=== PATIENT | male | born 1935 | race Caucasian/White ===

== ENCOUNTER → 2018-01-11 10:35 | Outpatient (CLI) | payer OTHER, SELFPAY ==
[2018-01-11 14:14] LABS: Hemoglobin A1C 8.1 % (4.5-6.2)
== END ==
PROVIDERS: PCP Family Medicine; Visit Provider Family Medicine
DX: E11.9 Type 2 diabetes mellitus without complications (principal)
CPT/HCPCS: 36415; 83036

== ENCOUNTER 2018-05-11 11:23 | Outpatient (CLI) | payer OTHER, SELFPAY ==
[2018-05-11 12:59] LABS: Hemoglobin A1C 8.7 % (4.5-6.2)
[2018-05-11 13:01] LABS: CREATININE 1.69 mg/dL (0.70-1.30); Estimated GFR 39.24 (mL/min/1.73m2); Potassium 4.9 mmol/L (3.5-5.1)
== END 2018-05-11 11:43 ==
PROVIDERS: PCP Family Medicine; Visit Provider Family Medicine
DX: E11.9 Type 2 diabetes mellitus without complications (principal)
CPT/HCPCS: 36415; 82565; 83036; 84132

== ENCOUNTER 2018-10-04 09:00 | Emergency (ER) | payer OTHER, SELFPAY ==
[2018-10-04] VITALS (52 sets, daily range): BP systolic 86–145; BP diastolic 45–56; PULSE 62–110; RESP 13–25; TEMP 37.2; O2SAT 91–98
--- NOTE | 2018-10-04 09:31 | DI.RAD_ITS ---
SYMPTOM/DIAGNOSIS: COUGH, FATIGUE PA AND LATERAL CHEST: Comparison is made with 11/12/16. Heart size and pulmonary vasculature are within normal limits. The lungs are free of infiltrates, effusions or pneumothoraces. Degenerative changes are seen in the spine. The patient has sternal wires in place. IMPRESSION: No acute pulmonary process.
--- NOTE | 2018-10-04 09:33 | W.ED.GENAD ---
Discharge Plan Disposition Patient Disposition: HOME Condition: Good Discharge Details Chief Complaint: GenMedical Clinical Impression: Bronchitis, Fatigue Primary Care Provider: Jamar Diaz ED Provider: Trini Rodriguez Home Meds and New Rx's Prescriptions: Continued pravastatin [Pravachol] 40 mg tablet 40 mg PO DAILY Qty: 90 RF: 4 sennosides-docusate sodium [Stool Softener-Stimulant Laxat] 1 EACH tablet 50 mg PO daily prn RF: 0 potassium chloride 10 MEQ capsule, extended release 10 meq PO DAILY Qty: 1 RF: 0 acetaminophen 500 MG tablet 500 mg PO 1-2 Tabs Q6Hrs PRN Qty: 1 RF: 0 aspirin 81 MG tablet,chewable 81 mg PO DAILY RF: 0 pen needle, diabetic [BD Ultra-Fine Yecenia Pen Needle] 1 EACH needle 1 ea Miscellaneous DAILY Qty: 100 RF: 3 multivitamin [Daily Multi-Vitamin] 1 EACH tablet 1 ea PO DAILY RF: 0 pindolol 5 MG tablet 5 mg PO BID RF: 0 losartan 25 MG tablet 0.5 tab PO DAILY Qty: 45 RF: 3 glipizide 5 MG tablet 5 - 10 mg PO BID Qty: 270 RF: 3 gabapentin 100 MG capsule 100 mg PO HS Qty: 90 RF: 3 isosorbide mononitrate 10 mg tablet 10 mg PO BID Qty: 180 RF: 3 memantine 5 mg tablet 5 mg PO BID Qty: 180 RF: 3 OneTouch Ultra Test strip 1 ea Miscellaneous TID Qty: 100 RF: 3 donepezil 10 mg tablet 10 mg PO DAILY Qty: 90 RF: 3 furosemide 40 mg tablet 40 mg PO DAILY Qty: 135 RF: 4 Discharge Instructions Instructions: Acute Bronchitis (ED), Fatigue (ED) Additional Instructions: Use the inhaler as needed and directed for shortness of breath. Follow-up with your scheduled appointment with your primary care doctor made for you tomorrow October 05 at 11:20 AM at [facility]. Return immediately to the emergency department with any worsening or new concerning symptoms. Discharge Data Discharge Date/Time-TO BE ENTERED AT DEPARTURE: 10/04/18 15:08 Discharge Physician: Trini Rodriguez Medical Decision Making 83-year-old male with history of angina, diabetes, hypertension, hyperlipidemia, HI, non-Hodgkin's lymphoma, PE presents with cough, shortness of breath and dizziness since yesterday. Patient denied any these complaints and states he did not recall them but the stated that she had noted that he had a cough and had complained to her of shortness of breath last night and an episode of dizziness last night as well as today. Patient denies any complaints at present and states he feels fine. states she is concerned that patient has possible pneumonia. Vitals within normal limits on arrival. He has scattered wheezing and rhonchi throughout, worse on the left chest. EKG notes a rate of 72 and sinus with less than 1 mm to [address] depression in V4 V5 V6 which is been seen in previous EKG did thousand 17. No other acute ST findings. Differential diagnosis includes pneumonia, UTI, HI, electrolyte abnormality, dehydration. Will place an IV, small bolus IV fluids, refer for screening labs, chest x-ray. 1400 --labs and imaging reviewed. White blood cell count 11. Initial troponin 0.10. Patient has had similar results of troponin in 2017 at 0.11 and 0.10. BNP 3770. Urinalysis negative for infection. Chest x-ray negative. A repeat troponin is 0.11. A repeat EKG is unremarkable. Patient denies any complaints of chest pain, shortness of breath, dizziness and he is requesting to go home. He was offered admission for observation but declined. Pt, and I engaged in shared decision making that he can monitor his symptoms at home and will arrange for a f/u appt with his pcp and to return here if worse. Discussed with patient and at length at bedside that with patient's scattered rhonchi and wheezing, he may have bronchitis which is likely viral. Discussed considering steroids but would rather hold on this at this time due to his diabetes and fluctuation in his blood sugar. Also discussed that with no fever, normal vital signs, negative chest x-ray, they would rather hold on antibiotics at this time, as well as his elevated BNP in the setting of a normal chest x-ray and no clinical signs of CHF, will hold on increasing Lasix at this time. An appointment was made for patient with his primary care doctor tomorrow 11:20 AM for reassessment and consideration of possible increasing his Lasix, or adding steroids or antibiotic's at this time if symptoms do not improve or worsen. Patient was instructed to return here immediately with any worsening or new concerning symptoms. Medical Records Medical records reviewed: Yes I reviewed the patient's medical records. Imaging Data Radiologic Study: Radiologist's impression: PA AND LATERAL CHEST: Comparison is made with 11/12/16. Heart size and pulmonary vasculature are within normal limits. The lungs are free of infiltrates, effusions or pneumothoraces. Degenerative changes are seen in the spine. The patient has sternal wires in place. IMPRESSION: No acute pulmonary process. Lab Data Lab results reviewed: Yes I reviewed the patient's lab results. ECG Data Attestation: I personally reviewed and interpreted this ECG (s) as follows: Interpretation: Rate of 72, sinus, less than 1 mm to [address] depression seen in V4 V5 and V6 which is been seen in previous EKG 2017. No acute ST elevation. QTc 376. QRS 102. HPI General Mode of arrival: ambulatory. Date/Time Provider Initiated Documentation: 10/04/18 09:13. Limitations to Documentation: no limitations. Information obtained by: patient. HPI Narrative: Patient is an 83-year-old male with a history of angina, diabetes, hypertension, hyperlipidemia, HI, non-Hodgkin's lymphoma, PE who presents the ED with complaint of cough for the past few days, decreased appetite, fatigue and intermittent episodes of dizziness and shortness of breath. Patient does not recall any of these complaints and states he feels fine and denies any complaints at this time. states she noticed that patient had more of a cough yesterday but states is improved today. She states last night he complained of feeling dizzy as well as this morning. She states last night he complained of feeling short of breath but not since then. He denies any fever, chest pain, sick contacts, recent travel, or recent hospital admission. Related Data Home Medications Medication Instructions Recorded Confirmed sennosides-docusate sodium [Stool 50 mg PO daily prn 10/19/12 10/04/18 Softener-Stimulant Laxat] acetaminophen 500 mg PO 1-2 Tabs Q6Hrs PRN #1 08/15/15 10/04/18 potassium chloride 10 meq PO DAILY #1 08/15/15 10/04/18 aspirin 81 mg PO DAILY tab-cap 09/16/16 10/04/18 pen needle, diabetic [BD #100 ndl 06/23/17 12/12/18 Ultra-Fine Yecenia Pen Needle] multivitamin [Daily Multi-Vitamin] 1 ea PO DAILY 10/13/17 05/11/18 pindolol 5 mg PO BID tab-cap 10/13/17 10/04/18 glipizide 5 - 10 mg PO BID #270 tab-cap 12/29/17 10/04/18 losartan 0.5 tab PO DAILY #45 tab-cap 12/29/17 10/04/18 gabapentin 100 mg PO HS #90 tab-cap 12/30/17 10/04/18 pravastatin 40 mg tablet 40 mg PO DAILY #90 tab-cap 05/11/18 10/04/18 isosorbide mononitrate 10 mg tablet 10 mg PO BID #180 tab-cap 08/10/18 10/04/18 memantine 5 mg tablet 5 mg PO BID #180 tab 08/10/18 10/04/18 blood sugar diagnostic strips #100 strip 08/11/18 donepezil 10 mg tablet 10 mg PO DAILY #90 tab-cap 09/14/18 10/04/18 furosemide 40 mg tablet 40 mg PO DAILY #135 tab-cap 09/28/18 10/04/18 Previous Rx's Medication Instructions Recorded glipizide 5 - 10 mg PO BID #270 tab-cap 12/29/17 losartan 0.5 tab PO DAILY #45 tab-cap 12/29/17 gabapentin 100 mg PO HS #90 tab-cap 12/30/17 pravastatin 40 mg tablet 40 mg PO DAILY #90 tab-cap 05/11/18 isosorbide mononitrate 10 mg tablet 10 mg PO BID #180 tab-cap 08/10/18 memantine 5 mg tablet 5 mg PO BID #180 tab 08/10/18 blood sugar diagnostic strips #100 strip 08/11/18 donepezil 10 mg tablet 10 mg PO DAILY #90 tab-cap 09/14/18 furosemide 40 mg tablet 40 mg PO DAILY #135 tab-cap 09/28/18 Allergies Allergy/AdvReac Type Severity Reaction Status Date / Time Iodinated Contrast- Oral and Allergy Severe Swelling/Ed Unverified 10/04/18 09:15 IV Dye jia memantine Allergy diarrhea Unverified 10/04/18 09:15 Opioids - Morphine Analogues AdvReac Intermediate Nausea Unverified 10/04/18 09:15 General Stated Complaint: GenMedical JENY: 3 Review of Systems Review of Systems All systems reviewed & are unremarkable except as noted in HPI and below Constitutional Reports as per HPI, Denies chills and Denies fever(s) Eyes Denies blurry vision ENT Denies dizziness, Denies sore throat and Denies throat swelling Cardiovascular Denies chest pain and Denies dyspnea Respiratory Denies cough and Denies dyspnea Gastrointestinal Denies abdominal pain, Denies diarrhea and Denies vomiting Genitourinary Denies hematuria and Denies dysuria Musculoskeletal Denies back pain and Denies numbness Integumentary/Breasts Denies lesions and Denies rash Neurologic Denies dizziness, Denies focal weakness and Denies numbness Allergic/Immunologic Denies throat swelling PFS Surgical History CARDIAC CATH (~2007) Stent placement `ZIOPATCH` Family History Mother Diabetes Myocardial infarction Father Myocardial infarction Social History Smoking/Tobacco Use Status: Former Tobacco Use Alcohol Intake: former Drug use: Never Do you feel safe at home: Yes Do you feel safe in your relationship?: Yes Exam Const General: cooperative, healthy appearing and no acute distress HENMT Head: normal to inspection Face and sinus: normal facial exam Eyes General: appearance normal, both eyes and all related structures EOM: EOM intact bilaterally Neck Neck: normal visual inspection and No submandibular swelling Lymphatic: no lymphadenopathy noted Chest Chest: normal inspection of the chest and no tenderness Resp Effort & Inspection: normal respiratory effort and able to speak in complete sentences Auscultation: rhonchi (Worse on the left side) upper bilaterally and lower bilaterally and wheezes scattered wheezes Cardio Rate: regular rate Rhythm: regular rhythm GI Inspection: normal to inspection Palpation: soft, not firm, not rigid and nontender Auscultation: normal bowel sounds Skin General skin exam: no rashes or lesions noted Neuro General: alert, awake and oriented x3 Cognition: normal cognition Speech: speech normal Motor: muscle tone normal throughout Sensory Exam: no sensory deficits noted Extrem General: normal to inspection, full ROM and no edema Psych Appearance: grossly normal Mental Status: mental status grossly normal Speech and Movement: speech and movement normal Affect: normal affect Course Vital Signs Temperature 99.0 F 10/04/18 09:06 Pulse 76 10/04/18 09:06 Respiratory Rate 18 10/04/18 09:06 Blood Pressure 101/53 L 10/04/18 09:06 Pulse Oximetry 97 10/04/18 09:06 Temperature 99.0 F 10/04/18 09:06 Temperature Source Skin 10/04/18 09:06 Pulse 76 10/04/18 09:06 Respiratory Rate 18 10/04/18 09:06 Respiratory Effort Non-Labored 10/04/18 09:13 Blood Pressure 101/53 L 10/04/18 09:06 Blood Pressure Position Sitting 10/04/18 09:06 Pulse Oximetry 97 10/04/18 09:06 Oxygen Delivery Method Room Air 10/04/18 09:06 Oxygen Flow Rate 0 10/04/18 09:06
[2018-10-04 10:00] LABS: Abs Immature Grans 0.02 k/cumm (0.0-0.09); Absolute Basophil Count 0.03 k/cumm (0.0-0.2); Absolute Eosinophil Count 0.01 k/cumm (0.0-0.7); Absolute Lymphocyte Count 0.67 k/cumm (1.2-3.4); Absolute Monocyte Count 1.14 k/cumm (0.11-0.7); Basophils % 0.3; Eosinophils % 0.1; HCT 40.1 % (40.0-50.0); HGB 13.2 g/dL (13.5-17.5); Immature Grans % 0.2; Mean Corp. HGB Concentration 32.9 g/dL (32.0-36.0); Mean Corpuscular Volume 100.3 fL (80-95); Mean Platelet Volume 10.9 fL (8.0-11.0); Monocytes % 10.3; Neutrophils % 83.1; Platelet Count 237 x1000/uL (130-400); RBC Distribution Width 13.2 % (11.8-14.1); White Blood Cell Count 11.11 k/cumm (4.4-10.8)
[2018-10-04 10:01] LABS: Absolute Neutrophil Count 9.23 k/cumm (1.2-6.7)
[2018-10-04] MEDS: Normal Saline 250 ML IV (10:07)
[2018-10-04 10:11] LABS: ALT 21 U/L (12-78); AST 21 U/L (15-37); Albumin 3.7 g/dL (3.4-5.0); Alkaline Phosphatase 82 U/L (46-116); BUN 29 mg/dL (7-18); Bilirubin, Total 0.9 mg/dL (0.2-1.0); CREATININE 1.98 mg/dL (0.70-1.30); Calcium 9.9 mg/dL (8.5-10.1); Chloride 99 mmol/L (98-107); Glucose 138 mg/dL (70-100); Magnesium 2.3 mg/dL (1.8-2.4); Potassium 4.4 mmol/L (3.5-5.1); Sodium 138 mmol/L (136-145); Total Protein 8.2 g/dL (6.4-8.2)
[2018-10-04 10:16] LABS: NT-proBNP 3770 pg/mL
[2018-10-04 11:46] LABS: Bilirubin Negative (Negative); Blood Negative (Negative); Clarity Clear; Glucose Negative (Negative); Ketones 15 mg/dL (Negative); Leukocyte Esterase Trace (Negative); Nitrite Negative (Negative); Specific Gravity 1.015 (1.005-1.025); Urobilinogen 0.2 EU/dL (Up TO 0.2); pH 5.5 (5-8)
[2018-10-04 11:59] LABS: Bacteria Rare HPF (Negative); Casts Negative LPF (Negative); Crystals Negative HPF (Negative); Epithelial Cells Few HPF (Negative); Mucus Negative (Negative); Other Cells Few Renal (Negative); RBC 0-2 (0-2); WBC 0-2 HPF (0-5)
[2018-10-04 13:15] LABS: Troponin I 0.11 ng/mL (0.00-0.06)
--- NOTE | 2018-10-04 14:31 | PDOC.ERCMPRO ---
Care Management Progress Note 10/04- requested assistance with a PCP (Joe) f/u tomorrow for dizziness and shortness of breath. Called [facility] and spoke with Mayra. Mayra scheduled Aubrey for October 05 at 1120. Patient given an appt card. Dr. Rodriguez aware of the above appt and has placed on d/c paperwork.
--- NOTE | 2018-10-04 14:36 | CMPROGNOTE_ITS ---
Care Management Progress Note 10/04- requested assistance with a PCP (Joe) f/u tomorrow for dizziness and shortness of breath. Called [facility] and spoke with Mayra. Mayra scheduled Aubrey for October 05 at 1120. Patient given an appt card. Dr. Rodriguez aware of the above appt and has placed on d/c paperwork.
[2018-10-05 00:47] LABS: C & S Indicated? Yes
== END 2018-10-04 15:08 | disposition home or self-care (01) ==
PROVIDERS: Emergency Provider Physician Assistant; PCP Family Medicine
DX: J20.9 Acute bronchitis, unspecified (principal); R53.83 Other fatigue; I10 Essential (primary) hypertension; E11.9 Type 2 diabetes mellitus without complications; Z95.5 Presence of coronary angioplasty implant and graft
CPT/HCPCS: 36415; 80053; 93005; 96360; 99285; 71046; 81003; 81015; 83735; 83880; 84484; 85025; 87086; 93010

== ENCOUNTER 2018-11-08 11:19 | Outpatient (CLI) | payer OTHER, SELFPAY ==
[2018-11-08 13:04] LABS: CREATININE 1.78 mg/dL (0.70-1.30); Estimated GFR 36.87 (mL/min/1.73m2); Potassium 4.8 mmol/L (3.5-5.1)
[2018-11-08 13:57] LABS: Hemoglobin A1C 8.6 % (4.5-6.2)
== END 2018-11-08 11:39 ==
PROVIDERS: PCP Family Medicine; Visit Provider Family Medicine
DX: E11.9 Type 2 diabetes mellitus without complications (principal); I10 Essential (primary) hypertension
CPT/HCPCS: 36415; 82565; 83036; 84132

== ENCOUNTER 2019-11-08 01:24 | Outpatient (CLI) | payer OTHER, SELFPAY ==
[2019-11-08 11:56] LABS: COMMENT (LAB VIEW ONLY) 48.37 mg/dL; Microalb ug/mg Crea 30.2 ug/mg Cr
[2019-11-08 11:59] LABS: CREATININE 1.74 mg/dL (0.70-1.30); Calculated LDL 54 mg/dL (<100); Cholesterol 144 mg/dL (<200); Estimated GFR 37.75 (mL/min/1.73m2); HDL Cholesterol 35 mg/dL (40-60); Potassium 4.3 mmol/L (3.5-5.1); Triglyceride 276 mg/dL (<150)
[2019-11-08 12:03] LABS: Hemoglobin A1C 10.5 % (3.8-5.6)
== END 2019-11-08 01:44 ==
PROVIDERS: PCP Family Medicine; Visit Provider Family Medicine
DX: I10 Essential (primary) hypertension (principal); E11.9 Type 2 diabetes mellitus without complications; E78.5 Hyperlipidemia, unspecified; R73.9 Hyperglycemia, unspecified
CPT/HCPCS: 36415; 80061; 82043; 82565; 82570; 83036; 84132

== ENCOUNTER 2020-01-25 21:09 | Inpatient (IN) | payer OTHER, SELFPAY ==
[2020-01-25] VITALS (19 sets, daily range): BP systolic 114–137; BP diastolic 72–81; PULSE 95–107; RESP 20–31; TEMP 36.4; O2SAT 79–91
--- NOTE | 2020-01-25 21:00 | DI.CT_ITS ---
EXAM: CT HEAD CERVICAL SPINE WO CLINICAL HISTORY: syncope with fall/demented TECHNIQUE: COMPARISON: No exams were available for comparison FINDINGS: CT examination cervical spine was performed without contrast administration. There are moderate dege nerative changes of the cervical spine. There is no evidence of acute fracture or dislocation. Trac heolaryngeal structures appear intact. Visualized lung apices are clear. No cervical mass or adenop athy. Noncontrast cranial CT was performed. There is moderate to severe generalized cerebral atrophy. The re is no evidence of acute intracranial hemorrhage, mass effect, or midline shift. No calvarial frac ture. Visualized paranasal sinus and mastoid air cells are clear. Orbital and temporal bone structu res appear intact. IMPRESSION: No evidence of acute cervical spine injury. No evidence of acute intracranial injury. RADIATION DOSE DELIVERED: 1,318.77mGy.cm Total DLP
--- NOTE | 2020-01-25 21:00 | RT.EKG_ITS ---
APPROVED REPORT Exam: Resting ECG Patient Location: E HR:97 bpm ECG Measurements Heart Rate 97 AXIS TN 125 P 188 QRSd 101 QRS 69 QT 489 T 45 QTc 623 Conclusion Sinus or ectopic atrial rhythm...P axis (-45,135) Consider anteroseptal infarct...Q >30mS, dimin R, V1-V2 Repol abnrm suggests ischemia, diffuse leads...ST-T neg, ant/lat/inf Prolonged QT interval...QTc >500mS The lateral ST depressions are more pronounce today compared to 11/12/16. No STEMI
--- NOTE | 2020-01-25 21:00 | DI.RAD_ITS ---
EXAM: XR CHEST 2V PA LATERAL CLINICAL HISTORY: syncope TECHNIQUE: COMPARISON: CR XR CHEST 2V PA LATERAL from 10/04/2018 FINDINGS: The heart is at the upper limits of normal in size. There are sternal sutures and mediastinal vascul ar clips consistent with prior CABG surgery. The lungs are clear with minimal scarring. No pleural effusion seen. IMPRESSION: No evidence of acute process. RADIATION DOSE DELIVERED: Total DLP
--- NOTE | 2020-01-25 21:11 | W.ED.GENAD ---
Discharge Plan Disposition Patient Disposition: [facility] INPATIENT Condition: Fair Discharge Details Chief Complaint: Vascular Clinical Impression: Hypotension, Hyperglycemia, Unwitnessed fall Primary Care Provider: Jamar Diaz ED Provider: Hakeem Shafer Home Meds and New Rx's Prescriptions: No Action donepezil 10 mg tablet 10 mg PO DAILY Qty: 90 RF: 3 (DME) blood sugar diagnostic Strip 1 ea Miscellaneous TID Qty: 100 RF: 3 gabapentin 100 mg capsule 100 mg PO HS Qty: 90 RF: 3 glipizide 5 mg tablet 5 - 10 mg PO BID Qty: 270 RF: 3 isosorbide mononitrate 10 mg tablet 10 mg PO BID Qty: 180 RF: 3 memantine 5 mg tablet 5 mg PO BID Qty: 180 RF: 3 acetaminophen 500 MG tablet 500 mg PO 1-2 Tabs Q6Hrs PRN Qty: 1 RF: 0 aspirin 81 MG tablet,chewable 81 mg PO DAILY RF: 0 multivitamin [Daily Multi-Vitamin] 1 EACH tablet 1 ea PO DAILY RF: 0 (DME) lancets [Acti-Korey Lancets] 28 gauge misc See Dose Instructions .ROUTE .MEDSUPPLY Qty: 50 RF: 3 pravastatin [Pravachol] 40 mg tablet 40 mg PO DAILY Qty: 90 RF: 4 furosemide 40 mg tablet 60 mg PO DAILY Qty: 135 RF: 3 losartan 25 mg tablet 25 mg PO DAILY RF: 0 Medical Decision Making Patient presenting to ED with presumed syncopal event from home. Patient unable to provide history. did not witness the event. She does report that he has been fatigued with decreased oral intake for the last few days. He was hypotensive for EMS. He has received a liter of fluid and is better. He is not febrile. He does have very pale conjunctiva. Differential includes arrhythmia, sepsis, symptomatic anemia, cardiac ischemia. IV established here as EMS line lost. Records indicate an EF of 30% from last echo. Will run fluids at 150 an hour. Naylor placed to monitor urine output as well as obtain urine sample. Head and cervical spine CT for syncope with fall. Chest x-ray for slightly low O2 saturation and pneumonia work-up. Laboratory studies sent. EKG shows some worsening ST depression in the lateral leads. He also has prolonged QT. Nothing else significantly remarkable on work-up in ED. Kidney function is baseline. He is not anemic. His white count is normal. His lactic acid is slightly elevated. Glucose is also elevated at 405. Bicarb is normal. Urine is not infected. Troponin negative. Chest x-ray without infiltrate or edema. Head and cervical spine negative for anything acute. Patient's blood pressure has remained fine here. Review of cardiology consult from [facility] in 2018 shows that he has had syncopal events in the past. In fact he was offered a pacemaker in 2018 which he declined. Seems more blood pressure related to the arrhythmia related but given inability for patient to provide history I think it is reasonable for observation admit and telemetry monitoring overnight. Would continue fluid hydration overnight and trend enzymes. Case was discussed with hospitalist, Dr. Wood, who agrees with admission. Discussed with who is also agreeable. Medical Records Medical records reviewed: Yes I reviewed the patient's medical records. Lab Data Lab results reviewed: Yes I reviewed the patient's lab results. ECG Data Attestation: I personally reviewed and interpreted this ECG (s) as follows: Interpretation: see EKG HPI General Mode of arrival: EMS. Date/Time Provider Initiated Documentation: 01/25/20 21:14. Limitations to Documentation: no limitations. Information obtained by: patient, family, EMS, RN notes reviewed and old records reviewed. HPI Narrative: Patient presents to the ED by EMS after being found on the floor at his home by his . Patient has dementia and is unable to provide history. Per the he had gone to the bedroom to get changed for bedtime. She had gone out with the dogs. When she came back in she heard a thud and found him on the floor. He was confused but not unconscious. EMS was called. EMS reports that he was pale and diaphoretic as well as hypotensive. Became symptomatic with lightheadedness anytime he tried to get up. IV was established and he did receive a liter of fluid before the IV was lost. Patient arrives here awake and alert without complaint. reports that for the last 2 days he has been sleeping way more than usual and not eating or drinking. She denies any complaints of chest pain abdominal pain or headache from him. He has not had fever or cough. She has not noticed any black stool or bloody stool. He has not had any vomiting or diarrhea. Related Data Home Medications Medication Instructions Recorded Confirmed acetaminophen 500 mg PO 1-2 Tabs Q6Hrs PRN #1 08/15/15 01/25/20 aspirin 81 mg PO DAILY tab-cap 09/16/16 01/25/20 multivitamin [Daily Multi-Vitamin] 1 ea PO DAILY 10/13/17 01/25/20 lancets 28 gauge #50 each 12/29/18 01/25/20 pravastatin 40 mg tablet 40 mg PO DAILY #90 tab-cap 06/07/19 01/25/20 blood sugar diagnostic #100 strip 08/04/19 01/25/20 donepezil 10 mg tablet 10 mg PO DAILY #90 tab-cap 08/04/19 01/25/20 gabapentin 100 mg capsule 100 mg PO HS #90 tab-cap 08/04/19 01/25/20 glipizide 5 mg tablet 5 - 10 mg PO BID #270 tab-cap 08/04/19 01/25/20 isosorbide mononitrate 10 mg tablet 10 mg PO BID #180 tab-cap 08/04/19 01/25/20 memantine 5 mg tablet 5 mg PO BID #180 tab 08/04/19 01/25/20 furosemide 40 mg tablet 60 mg PO DAILY #135 tab-cap 08/09/19 01/25/20 losartan 25 mg PO DAILY 01/25/20 Previous Rx's Medication Instructions Recorded lancets 28 gauge #50 each 12/29/18 pravastatin 40 mg tablet 40 mg PO DAILY #90 tab-cap 06/07/19 blood sugar diagnostic #100 strip 08/04/19 donepezil 10 mg tablet 10 mg PO DAILY #90 tab-cap 08/04/19 gabapentin 100 mg capsule 100 mg PO HS #90 tab-cap 08/04/19 glipizide 5 mg tablet 5 - 10 mg PO BID #270 tab-cap 08/04/19 isosorbide mononitrate 10 mg tablet 10 mg PO BID #180 tab-cap 08/04/19 memantine 5 mg tablet 5 mg PO BID #180 tab 08/04/19 furosemide 40 mg tablet 60 mg PO DAILY #135 tab-cap 08/09/19 Allergies Allergy/AdvReac Type Severity Reaction Status Date / Time Iodinated Contrast Media Allergy Severe Swelling/Ed Unverified 01/25/20 21:50 [Iodinated Contrast- Oral jia and IV Dye] memantine Allergy diarrhea Unverified 01/25/20 21:50 Opioids - Morphine Analogues AdvReac Intermediate Nausea Unverified 01/25/20 21:50 General JENY: 3 Review of Systems Narrative: 03/13 Review of Systems completed and is negative except as stated above in HPI (Systems reviewed: Const, Eyes, ENT, Resp, CV, GI, , MSK, Skin, Neuro) ROS done with . [facility] Medical History Dementia (Chronic) Diabetes mellitus (Chronic 10/20/12) He is advised not to worry about sugars, as tight monitoring will unlikely provide him any longevity benefit. 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 Family History (Updated 11/15/19 @ 10:06 by Cari Dick) Mother Diabetes Myocardial infarction Father Myocardial infarction Sister Diabetes Heart disease Maternal Grandfather No problems noted. Paternal Grandfather No problems noted. Maternal Grandmother No problems noted. Paternal Grandmother No problems noted. Son Diabetes Hyperlipidemia Son No problems noted. Daughter No problems noted. Sister No problems noted. Social History Smoking/Tobacco Use Status: Former Tobacco Use Second Hand Exposure: Yes Alcohol Intake: former Drug use: Never Substance use type: does not use Household members: spouse Housing: house Do you need help understanding health information?: Always Pets and animals: Yes Pets and animals: cat(s) and dog(s) Sexually active: No Do you think of yourself as: straight/heterosexual Current gender identity: male What is your relationship status?: How often do you talk on the phone with friends or family?: twice per week How often do you get together with friends or relatives?: once per week How often do you attend mu-ism or lutheran services?: decline to answer Do you belong to any clubs or organized social groups?: decline to answer Panel score (0-1 are the most socially isolated patients): 2 What type of physical activity do you participate in: none and decline to answer Duration: decline to answer Frequency: decline to answer Lindy/Taoism: No preference Special lindy needs: No Seatbelt use: always Helmet use: No Drive intox 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 Normal vitals. Room air saturations low 90s. Const: WDWN elderly male in NAD. HEENT: NC/AT. Normal facial exam. Eyes: Pale conjunctiva. Neck: Supple. Trachea midline. No midline c-spine tenderness. Lungs: Normal respiratory effort. Lungs are clear. Cor: RRR without murmur/gallop. Weak radial pulses. Strong carotids. GI: Soft. NT/ND. No guarding or rebound. Neuro: A+O x 2. Normal speech, mentation. Cranial nerves II - XII grossly intact. No gross motor or sensory deficit. Ext: No C/C. BLE edema. No deformity or decreased ROM. Skin: Warm and dry without laceration. Multiple scabs are arms, states from picking.
[2020-01-25 21:39] LABS: Abs Immature Grans 0.02 10^3/uL (0.0-0.06); Absolute Basophil Count 0.05 10^3/uL (0.0-0.2); Absolute Eosinophil Count 0.02 10^3/uL (0.0-0.7); Absolute Lymphocyte Count 1.05 10^3/uL (1.2-3.4); Absolute Monocyte Count 0.64 10^3/uL (0.1-0.8); Absolute Neutrophil Count 5.97 10^3/uL (1.2-6.7); Basophils % 0.6; Eosinophils % 0.3; HCT 41.7 % (40.0-50.0); HGB 13.7 g/dL (13.5-17.5); Immature Grans % 0.3; Lymphocytes % 13.5; MCH 32.5 pg (27.0-33.0); MCHC 32.9 % (32.0-36.0); MPV 10.6 fL (8.0-11.0); Monocytes % 8.3; Nucleated RBC 0 %; Platelet Count 199 10^3/uL (130-400); RBC 4.21 10^6/uL (4.36-5.78); RDW 12.8 % (11.8-14.1); RDW-SD 46.5 fL; WBC 7.75 10^3/uL (4.4-10.8)
[2020-01-25 21:54] LABS: Lactate 2.9 mmol/L (0.6-1.4)
[2020-01-25 21:55] LABS: Bilirubin Negative (Negative); Blood Negative (Negative); Clarity Clear (Clear); Glucose 500 mg/dL (Negative); Ketones 15 mg/dL (Negative); Leukocyte Esterase Negative (Negative); Nitrite Negative (Negative); Urobilinogen 0.2 EU/dL (Up TO 0.2)
[2020-01-25 21:57] LABS: ALT 15 U/L (16-63); AST 14 U/L (15-37); Albumin 3.2 g/dL (3.4-5.0); Alkaline Phosphatase 88 U/L (46-116); Anion Gap 10.4 mmol/L (3-11); BUN 22 mg/dL (7-18); Bilirubin, Total 0.8 mg/dL (0.2-1.0); CO2 27.6 mmol/L (21.0-32.0); CREATININE 1.68 mg/dL (0.70-1.30); Calcium 9.2 mg/dL (8.5-10.1); Chloride 99 mmol/L (98-107); Estimated GFR 39.31 (mL/min/1.73m2); Glucose 405 mg/dL (74-106); Potassium 4.4 mmol/L (3.5-5.1); Sodium 137 mmol/L (136-145); Total Protein 7.5 g/dL (6.4-8.2); Troponin I < 0.05 ng/mL (<0.06)
[2020-01-25 22:01] LABS: Bacteria Negative HPF (Negative); C & S Indicated? No; Casts Negative LPF (Negative); Crystals Negative HPF (Negative); Epithelial Cells Negative HPF (Negative); Mucus Negative (Negative); Other Cells Negative (Negative); RBC 0-2 HPF (0-2); WBC 0-2 HPF (0-5)
[2020-01-25] MEDS: Lactated Ringers 1,000 ML 150 ML IV (22:23)
--- NOTE | 2020-01-25 22:27 | DI.VRAD_ITS ---
PROCEDURE INFORMATION: Exam: CT Head Without Contrast Exam date and time: 01/25/2020 22:08 Age: 84 years old Clinical indication: Syncope and collapse; Other: Demented TECHNIQUE: Imaging protocol: Computed tomography of the head without contrast. COMPARISON: No relevant prior studies available. FINDINGS: Brain: A tiny inferior left cerebellar infarct is suggested. Folia or atrophy. Severe cerebral atrophy. No significant white matter disease for the patient's age. Question a very small focus of right occipital encephalomalacia. Ventricles: Ex vacuo dilation of the ventricular system. Bones/joints: No acute fracture. Sinuses: No acute sinusitis. Mastoid air cells: No mastoid effusion. Vasculature: Atherosclerosis. Soft tissues: No suspicious lesions. IMPRESSION: No acute intracranial findings. PROCEDURE INFORMATION: Exam: CT Cervical Spine Without Contrast Exam date and time: 01/25/2020 22:08 Age: 84 years old Clinical indication: Syncope and collapse; Other: Demented TECHNIQUE: Imaging protocol: Computed tomography images of the cervical spine without contrast. COMPARISON: No relevant prior studies available. FINDINGS: Vertebrae: No acute fracture or subluxation. Minor chronic appearing loss of height at C6. Discs/Spinal canal/Neural foramina: Uncovertebral hypertrophy. Posterior disc osteophyte complexes, multilevel, contributing to multilevel [id number] central canal stenosis and multilevel generally mild to moderate neural foraminal stenosis. Other bones/joints: The bones are demineralized. Soft tissues: No suspicious lesions. Lungs: No consolidation. Vasculature: Atherosclerosis. IMPRESSION: No cervical spine fracture. Dictated and Authenticated by: Marichuy Lozada MD. Ordering:CECIL Palacio MD
--- NOTE | 2020-01-25 22:32 | DI.VRAD_ITS ---
PROCEDURE INFORMATION: Exam: XR Chest, 2 Views Exam date and time: 01/25/2020 10:17 PM Age: 84 years old Clinical indication: Other: Syncope TECHNIQUE: Imaging protocol: XR of the chest Views: 2 views. COMPARISON: CR XR CHEST 2V PA LATERAL 10/04/2018 10:35 AM FINDINGS: Lungs: Unremarkable. No consolidation. Pleural space: Unremarkable. No pleural effusion. No pneumothorax. Heart/Mediastinum: Previous open-heart surgery. No cardiomegaly. 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 IMPRESSION: 1. No lung infiltrates or edema. 2. Previous open-heart surgery. 3. No pleural effusions. 4. 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 5. No significant change since 10/04/2018 Dictated and Authenticated by: Willis Jaime MD. Ordering:CECIL Palacio MD
--- NOTE | 2020-01-25 23:20 | NUR.NOTE ---
Nursing Note: Indwelling maravilla removed per .
[2020-01-26] VITALS (16 sets, daily range): BP systolic 117–165; BP diastolic 70–108; PULSE 81–105; RESP 17–33; TEMP 36–36.7; O2SAT 92–98
[2020-01-26] MEDS: Normal Saline 1,000 ML 80 ML IV (01:06)
[2020-01-26 01:49] LABS: Troponin I 0.24 ng/mL (<0.06)
[2020-01-26 06:42] LABS: Abs Immature Grans 0.02 10^3/uL (0.0-0.06); Absolute Basophil Count 0.03 10^3/uL (0.0-0.2); Absolute Eosinophil Count 0.01 10^3/uL (0.0-0.7); Absolute Lymphocyte Count 1.45 10^3/uL (1.2-3.4); Absolute Monocyte Count 0.92 10^3/uL (0.1-0.8); Absolute Neutrophil Count 5.94 10^3/uL (1.2-6.7); Basophils % 0.4; Eosinophils % 0.1; HCT 40.1 % (40.0-50.0); HGB 13.7 g/dL (13.5-17.5); Immature Grans % 0.2; Lymphocytes % 17.3; MCHC 34.2 % (32.0-36.0); MCV 96.6 fL (80-95); MPV 10.8 fL (8.0-11.0); Nucleated RBC 0 %; Platelet Count 191 10^3/uL (130-400); RBC 4.15 10^6/uL (4.36-5.78); RDW 13.1 % (11.8-14.1); RDW-SD 46.3 fL; WBC 8.37 10^3/uL (4.4-10.8)
[2020-01-26 06:53] LABS: Anion Gap 10.7 mmol/L (3-11); BUN 24 mg/dL (7-18); CO2 26.3 mmol/L (21.0-32.0); CREATININE 1.46 mg/dL (0.70-1.30); Calcium 9.6 mg/dL (8.5-10.1); Chloride 100 mmol/L (98-107); Estimated GFR 46.23 (mL/min/1.73m2); Glucose 318 mg/dL (74-106); Potassium 4.4 mmol/L (3.5-5.1); Sodium 137 mmol/L (136-145)
[2020-01-26 06:56] LABS: Troponin I 1.42 ng/mL (<0.06)
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
--- NOTE | 2020-01-26 07:30 | RT.EKG_ITS ---
APPROVED REPORT Exam: Resting ECG Patient Location: I HR:93 bpm ECG Measurements Heart Rate 93 AXIS SD [id number] P [id number] QRSd 103 QRS 42 QT 426 T -78 QTc 529 Conclusion Accelerated junctional rhythm...absent P waves, accele'd V-rate Nonspecific repol abnormality, diffuse leads...ST dep, T flat/neg, ant/lat/inf Prolonged QT interval...QTc >500mS Sinus Rhythm Nonspecific ST-T changes
[2020-01-26] MEDS: Pravastatin 40 MG TAB PO (08:20)
[2020-01-26] MEDS: Memantine 5 MG TAB PO (08:20)
[2020-01-26] MEDS: Isosorbide Mononitrate 10 MG TAB PO ×2 (08:20→19:47)
[2020-01-26] MEDS: Aspirin E.C. 325 MG TABEC PO (08:21)
[2020-01-26] MEDS: Donepezil 5 MG TAB 10 MG PO (08:21)
[2020-01-26 08:33] LABS: FREE T4 1.17 ng/dL (0.76-1.46); NT-proBNP 9089 pg/mL (<300); TSH 0.46 uIU/mL (0.36-3.74)
[2020-01-26] MEDS: Clopidogrel 300 MG TAB PO (08:36)
[2020-01-26 09:12] LABS: PTT Activated 26.3 sec (21.0-31.4)
[2020-01-26 09:16] LABS: D-Dimer 6347 ng/mlFEU (<500)
--- NOTE | 2020-01-26 09:30 | RT.EKG_ITS ---
APPROVED REPORT Exam: Resting ECG Patient Location: I HR:92 bpm ECG Measurements Heart Rate 92 AXIS DC [id number] P [id number] QRSd 101 QRS 43 QT 464 T 30 QTc 576 Conclusion NSR [address]-T changes
--- NOTE | 2020-01-26 09:48 | NUR.NOTE ---
Nursing Note: Monioted patients labs at the start of the shift, and report a critical `lab troponin of 1.42. Patient is assessed and he denies chest pain or sob, he is smiling and sitting up and comfortable. EKG is ordered and taken Peer nurse holds insulin, (NPO), Lasix and Lovenox. Patient is given stat dose of aspirin. Orders to start heparin drip and transfer to ICU are received. Stat PTT drawn, Report is given to Ga in the ICU. Answer their questions to their satisfaction. Heparin is started at 1000 units, 10 ml hour. Patient is transferred to the care of ICU and roon 222
--- NOTE | 2020-01-26 10:22 | PDOC.CMIN ---
- If Service Date Differs Date of service: 01/26/20 Time of Service: 10:22 Care Management Initial Assess REASON FOR HOSPITALIZATION:: Syncope PAST MEDICAL HISTORY/PAST SURGICAL HISTORY:: Medical History . Dementia (Chronic). Diabetes mellitus (Chronic 10/20/12). He is advised not to worry about sugars, as tight monitoring will unlikely provide him any longevity benefit. Hyperlipidemia (Chronic 10/20/12). Hypertension (Chronic). same meds. Iatrogenic pulmonary embolism and infarction (Resolved 04/30/79). DVT-PE while in a leg cast. no recurrences. 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 ABDOMINAL. 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 currently no evidence of recurrence of lymphoma. Paroxysmal atrial fibrillation (Chronic 12/23/15). Surgical History . CARDIAC CATH (~2007). RIGHT AND LEFT. Status post coronary artery bypass with three autogenous grafts (Chronic 07/17/15). EF 30%. Stent placement. 2007; 1. 2005; 4+. `ZIOPATCH`. [place] PREVIOUS FUNCTIONAL STATUS/SOCIAL/FAMILY SUPPORTS:: Aubrey lives in [place] with his , Smita. This is the second marriage for both of them, and they have been 39 years. His son, Harmeet lives locally and is identified as supportive. Together, him and his have 5 children, 4 grandchildren and 14 great grandchildren. He has dementia, and his provides assistance with his ADL's. 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 CURRENT FUNCTIONAL STATUS:: Aubrey was lying in bed when CM met with him. He reported that he is not good today. His was in the room and stated that Carmen edgar [facility] had been in discussing goals of care, which was a good experience for them. She stated that she was relieved that there was another option than transferring to [facility]. CM discussed options for additional care in the home, including HH RN, PT, OT, SLOT FLOOR PERSON, [facility] and/or [facility]. Smita stated that she has worked with [facility] previously, and isn't sure that they can offer her anything. She reported that they are over income for [facility]. Per Palliative, he may be Hospice eligible, which would be another layer of support. CM will continue to follow. ADVANCE DIRECTIVES:: New [employer]ST on file, Smita listed as agent. Has patient been provided with info about the portal/API?: No Did the patient sign up for the portal?: No CODE STATUS:: DNR/DNI INSURANCE COVERAGE / FINANCIAL ISSUES:: [facility] CURRENT HOME/COMMUNITY SERVICES/EQUIPMENT:: No current services in the home. PRIMARY CARE PHYSICIAN:: Jamar Diaz POTENTIAL DISCHARGE NEEDS:: Evaluations for further needs, possible transfer, discussion of goals of care. PATIENT/FAMILY EDUCATION NEEDS:: Review discharge instructions, discussion of goals of care. ANTICIPATED BARRIERS TO DISCHARGE:: Palliative to meet with Sara regarding goals of care. TRANSPORTATION:: to be determined by disposition PLAN:: Per report, Aubrey was very likely having an ischemic event. His disposition will be determined by his course of care, which is being discussed with Aubrey, his , and his providers, including Palliative care. Sara met with Palliative care and they completed a new [employer] form, changing his code status to DNR/DNI. They decided to remain at [facility] for medical managment, but he will return home with his once medically cleared. He may be Hospice eligible, per Palliative, which will depend on his course at [facility]. He will either go home with HH RN, PT, OT, SLOT FLOOR PERSON or with Hospice support. CM will continue to follow and support discharge planning considerations.
[2020-01-26 10:26] LABS: Lactate 1.6 mmol/L (0.6-1.4)
--- NOTE | 2020-01-26 10:50 | PHA.REVIEW ---
Pharmacy Admission Review - Admission Clinical Review (Last Reviewed 01/26/20 @ 07:09 by Anshu Wood MD) Hypotension (Acute) Hyperglycemia (Acute) Unwitnessed fall (Acute) Atherosclerosis of [place] coronary artery (Acute) Iodinated Contrast Media [Iodinated Contrast- Oral and IV Dye] Allergy (Severe, Unverified 01/25/20 21:50) Swelling/Edema memantine Allergy (Unverified 01/25/20 21:50) diarrhea Opioids - Morphine Analogues Adverse Reaction (Intermediate, Unverified 01/25/20 21:50) Nausea Height 6 ft Weight 82.2 kg - Renal Dosing Renal Dosing: BUN 24 mg/dL (7-18) H 01/26/20 06:15 Creatinine 1.46 mg/dL (0.70-1.30) H 01/26/20 06:15 Medications needing adjustments: Reviewed (CrCl 42 ml/min) List of meds needing interventions: current meds ok - Anticoagulation Anticoagulation: Hgb 13.7 g/dL (13.5-17.5) 01/26/20 06:15 Hct 40.1 % (40.0-50.0) 01/26/20 06:15 Plt Count 191 10^3/uL (130-400) 01/26/20 06:15 Creatinine 1.46 mg/dL (0.70-1.30) H 01/26/20 06:15 DVT Prohphylaxis: N/A Medications: Heparin Therapeutic Anticoagulation: Reviewed Medications: Heparin - Opiate Usage Evaluate Pain Scale/Pains Meds: N/A - Relevant Labs Sodium 137 mmol/L (136-145) 01/26/20 06:15 Potassium 4.4 mmol/L (3.5-5.1) 01/26/20 06:15 Chloride 100 mmol/L (98-107) 01/26/20 06:15 Magnesium 2.0 mg/dL (1.8-2.4) 01/25/20 21:30 Electrolytes, C-Reactive P, ESR: Reviewed - DM Control DM Control: Glucose 318 mg/dL (74-106) H 01/26/20 06:15 Finger Stick Blood Glucose 293 - Heart Failure/WY Heart Failure/[place]: Troponin I 1.42 ng/mL (<0.06) H* 01/26/20 06:15 NT-Pro-B Natriuret Pep 9089 pg/mL (<300) H 01/26/20 06:15 NT-Pro-B Natriuret Pep Cancelled 01/26/20 06:15 EF%, LAKISHA's, B-Blockers, Diuretics: Reviewed (Losartan (home med), no BB - although was on Nadolol as of earlier past year, recently DC'd?, furosemide (ordered) - BP Control BP Control: Blood Pressure [Left Arm] 117/84 Blood Pressure 130/71 Blood Pressure 117/84 Blood Pressure 118/77 Blood Pressure 122/84 Blood Pressure 132/87 Blood Pressure 132/87 Blood Pressure 126/75 Blood Pressure 127/81 Blood Pressure 128/74 Blood Pressure 131/75 Blood Pressure 137/75 If elevated: Reviewed - Qtc Review If Elevated: Intervened (Per most recent EKG in chart QTc was 529 but has come down since then per MD) List meds needing interventions: Donepezil, ondansetron (notified MD but QTc has normalized) - IV to PO Switch IV Medications: Reviewed - Home Meds Home Med List reviewed: Intervened (Reviewed home med list -- up to date, confirmed losartan) - Current meds Current Medication Order Review: Intervened (adjusted some times on alejandro meds per hosp policy)
[2020-01-26 11:11] LABS: Troponin I 2.74 ng/mL (<0.06)
--- NOTE | 2020-01-26 11:20 | PGE_ITS ---
Date of Service Date of service: 01/26/20 Time of Service: 11:20 Assessment and Plan Assessment and plan (1) NSTEMI (non-ST elevated myocardial infarction): Status: Acute Assessment and plan: With elevated troponin, lateral ST segment depressions. Cardiology consulted. Continue aspirin, plavix, heparin gtt. Unable to obtain echo until Wednesday. Continue to monitor on tele, but transfer out of ICU. Family declining transfer to [facility]. If deteriorates, advance to comfort measures. (2) Elevated d-dimer: Status: Acute Assessment and plan: H/o provoked DVT/PE in the past. Checking VQ (allergic to contrast) and venous dopplers. (3) Unwitnessed fall: Status: Acute Assessment and plan: Possible syncope given above. Continue to monitor on tele. Again, no echo available. (4) Hypotension: Status: Acute Assessment and plan: Resolved. D/c IVF. (5) Uncontrolled diabetes mellitus: Status: Acute Assessment and plan: Conitnue SSI while inpatient. Consider addition of long acting insulin. (6) Urinary retention: Status: Acute Assessment and plan: Voiding trial x 24 hrs (7) Dementia: Status: Chronic Assessment and plan: Continue home meds (8) Discharge planning issues: Status: Acute Assessment and plan: Code status changed to DNR/DNI. Transfer to [facility] surg. Total Critical Care Time 40 minutes. Subjective Subjective Interval history since last seen: Mr Francois has remained chest pain free. Troponin went up to 2.74. Was initiated on full dose aspirin, loaded with plavix and started on heparin gtt. /family had a palliative care meeting. They are not interested in transfer (initially sought with [facility], now cancelled). They would like to trial medical therapy, but if he deteriorates, comfort measures would be considered. They would like him to be transferred back to [facility]. His code status was changed to DNR/DNI. They do not mind us doing testing to rule out DVT/PE. The DVT/PE in the 70s had to do with an ankle fracture. Denies dizziness, chest pain, shortness of breath, but does endorse nausea. He is retaining urine (500 cc). He is having occasional pauses on tele up to 3 sec - otherwise, in SR with 1st degree AV block. Pauses have been there in the past, per . Exam Narrative Exam Narrative: General: Pleasant elderly male, A&Ox2, appears pale HEENT: EOMI, MMM Heart: RRR, no m/r/g Lungs: CTAB Abdomen: soft, nontender, nondistended Extremities: no e/c/c BLEs, trace pedal pulses B Objective Objective Clinical Data: Abnormal lab results 01/25/20 01/25/20 01/25/20 Range/Units 21:30 21:30 21:30 RBC 4.21 L (4.36-5.78) 10^6/uL MCV 99.0 H (80-95) fL Absolute Lymphocytes 1.05 L (1.2-3.4) 10^3/uL Absolute Monocytes (0.1-0.8) 10^3/uL D-Dimer (<500) ng/mlFEU VBG Lactate 2.9 H* (0.6-1.4) mmol/L BUN 22 H (7-18) mg/dL Creatinine 1.68 H (0.70-1.30) mg/dL Glucose 405 H (74-106) mg/dL AST 14 L (15-37) U/L ALT 15 L (16-63) U/L Troponin I (<0.06) ng/mL NT-Pro-B Natriuret Pep (<300) pg/mL Albumin 3.2 L (3.4-5.0) g/dL Urine Protein (Negative) mg/dL Urine Ketones (Negative) mg/dL Urine Glucose (Negative) mg/dL 01/25/20 01/26/20 01/26/20 Range/Units 21:46 01:20 06:15 RBC (4.36-5.78) 10^6/uL MCV (80-95) fL Absolute Lymphocytes (1.2-3.4) 10^3/uL Absolute Monocytes (0.1-0.8) 10^3/uL D-Dimer (<500) ng/mlFEU VBG Lactate (0.6-1.4) mmol/L BUN 24 H (7-18) mg/dL Creatinine 1.46 H (0.70-1.30) mg/dL Glucose 318 H (74-106) mg/dL AST (15-37) U/L ALT (16-63) U/L Troponin I 0.24 H* 1.42 H* (<0.06) ng/mL NT-Pro-B Natriuret Pep 9089 H (<300) pg/mL Albumin (3.4-5.0) g/dL Urine Protein 100 H (Negative) mg/dL Urine Ketones 15 H (Negative) mg/dL Urine Glucose 500 H (Negative) mg/dL 01/26/20 01/26/20 01/26/20 Range/Units 06:15 08:30 10:15 RBC 4.15 L (4.36-5.78) 10^6/uL MCV 96.6 H (80-95) fL Absolute Lymphocytes (1.2-3.4) 10^3/uL Absolute Monocytes 0.92 H (0.1-0.8) 10^3/uL D-Dimer 6347 H (<500) ng/mlFEU VBG Lactate (0.6-1.4) mmol/L BUN (7-18) mg/dL Creatinine (0.70-1.30) mg/dL Glucose (74-106) mg/dL AST (15-37) U/L ALT (16-63) U/L Troponin I 2.74 H* (<0.06) ng/mL NT-Pro-B Natriuret Pep (<300) pg/mL Albumin (3.4-5.0) g/dL Urine Protein (Negative) mg/dL Urine Ketones (Negative) mg/dL Urine Glucose (Negative) mg/dL 01/26/20 Range/Units 10:15 RBC (4.36-5.78) 10^6/uL MCV (80-95) fL Absolute Lymphocytes (1.2-3.4) 10^3/uL Absolute Monocytes (0.1-0.8) 10^3/uL D-Dimer (<500) ng/mlFEU VBG Lactate 1.6 H (0.6-1.4) mmol/L BUN (7-18) mg/dL Creatinine (0.70-1.30) mg/dL Glucose (74-106) mg/dL AST (15-37) U/L ALT (16-63) U/L Troponin I (<0.06) ng/mL NT-Pro-B Natriuret Pep (<300) pg/mL Albumin (3.4-5.0) g/dL Urine Protein (Negative) mg/dL Urine Ketones (Negative) mg/dL Urine Glucose (Negative) mg/dL Vital Signs Temperature 36.4 C L 01/26/20 09:36 Temperature Source Temporal Artery Scan 01/26/20 09:36 Pulse 91 H 01/26/20 10:00 Pulse Rhythm Regular 01/26/20 00:36 Pulse 90 01/26/20 10:00 Respiratory Rate 20 01/26/20 10:00 Respiratory Effort 01/26/20 09:36 Respiratory Depth Normal 01/26/20 09:36 Respiratory Pattern Tachypnea 01/26/20 09:36 Blood Pressure 130/71 01/26/20 10:00 Blood Pressure Mean 86 01/26/20 10:00 Blood Pressure Position Supine 01/26/20 09:36 Pulse Oximetry 94 L 01/26/20 10:00 Oxygen Delivery Method Room Air 01/26/20 09:36 Oxygen Flow Rate 0 01/26/20 09:36 Pain Level 0 01/26/20 07:43 Comment 01/26/20 04:00 Intake & Output 01/25/20 01/25/20 01/26/20 11:59 23:59 11:59 Weight 82.2 kg 82.2 kg Other: Urine Color Pale Urine Appearance Clear Clear Laboratory Results WBC 8.37 10^3/uL (4.4-10.8) 01/26/20 06:15 RBC 4.15 10^6/uL (4.36-5.78) L 01/26/20 06:15 Hgb 13.7 g/dL (13.5-17.5) 01/26/20 06:15 Hct 40.1 % (40.0-50.0) 01/26/20 06:15 MCV 96.6 fL (80-95) H 01/26/20 06:15 MCH 33.0 pg (27.0-33.0) 01/26/20 06:15 MCHC 34.2 % (32.0-36.0) 01/26/20 06:15 RDW 13.1 % (11.8-14.1) 01/26/20 06:15 Plt Count 191 10^3/uL (130-400) 01/26/20 06:15 MPV 10.8 fL (8.0-11.0) 01/26/20 06:15 Immature Gran % 0.2 01/26/20 06:15 Neutrophils % 71.0 01/26/20 06:15 Lymphocytes % 17.3 01/26/20 06:15 Monocytes % 11.0 01/26/20 06:15 Eosinophils % 0.1 01/26/20 06:15 Basophils % 0.4 01/26/20 06:15 Nucleated RBC % 0 % 01/26/20 06:15 Absolute Neutrophils 5.94 10^3/uL (1.2-6.7) 01/26/20 06:15 Absolute Lymphocytes 1.45 10^3/uL (1.2-3.4) 01/26/20 06:15 Absolute Monocytes 0.92 10^3/uL (0.1-0.8) H 01/26/20 06:15 Absolute Eosinophils 0.01 10^3/uL (0.0-0.7) 01/26/20 06:15 Absolute Basophils 0.03 10^3/uL (0.0-0.2) 01/26/20 06:15 APTT 26.3 sec (21.0-31.4) 01/26/20 08:30 D-Dimer 6347 ng/mlFEU (<500) H 01/26/20 08:30 VBG Lactate 1.6 mmol/L (0.6-1.4) H 01/26/20 10:15 Sodium 137 mmol/L (136-145) 01/26/20 06:15 Potassium 4.4 mmol/L (3.5-5.1) 01/26/20 06:15 Chloride 100 mmol/L (98-107) 01/26/20 06:15 Carbon Dioxide 26.3 mmol/L (21.0-32.0) 01/26/20 06:15 Anion Gap 10.7 mmol/L (3-11) 01/26/20 06:15 BUN 24 mg/dL (7-18) H 01/26/20 06:15 Creatinine 1.46 mg/dL (0.70-1.30) H 01/26/20 06:15 Estimated GFR/1.73 m2 46.23 (mL/min/1.73m2) 01/26/20 06:15 Glucose 318 mg/dL (74-106) H 01/26/20 06:15 Calcium 9.6 mg/dL (8.5-10.1) 01/26/20 06:15 Magnesium 2.0 mg/dL (1.8-2.4) 01/25/20 21:30 Total Bilirubin 0.8 mg/dL (0.2-1.0) 01/25/20 21:30 AST 14 U/L (15-37) L 01/25/20 21:30 ALT 15 U/L (16-63) L 01/25/20 21:30 Alkaline Phosphatase 88 U/L (46-116) 01/25/20 21:30 Troponin I 2.74 ng/mL (<0.06) H* 01/26/20 10:15 NT-Pro-B Natriuret Pep 9089 pg/mL (<300) H 01/26/20 06:15 NT-Pro-B Natriuret Pep Cancelled 01/26/20 06:15 Total Protein 7.5 g/dL (6.4-8.2) 01/25/20 21:30 Albumin 3.2 g/dL (3.4-5.0) L 01/25/20 21:30 TSH 0.46 uIU/mL (0.36-3.74) 01/26/20 06:15 Free T4 1.17 ng/dL (0.76-1.46) 01/26/20 06:15 Urine Color Yellow (Yellow) 01/25/20 21:46 Urine Clarity Clear (Clear) 01/25/20 21:46 Urine pH 7.0 (5-8) 01/25/20 21:46 Ur Specific [place] 1.020 (1.005-1.025) 01/25/20 21:46 Urine Protein 100 mg/dL (Negative) H 01/25/20 21:46 Urine Ketones 15 mg/dL (Negative) H 01/25/20 21:46 Urine Blood Negative (Negative) 01/25/20 21:46 Urine Nitrite Negative (Negative) 01/25/20 21:46 Urine Bilirubin Negative (Negative) 01/25/20 21:46 Urine Urobilinogen 0.2 EU/dL (Up TO 0.2) 01/25/20 21:46 Ur Leukocyte Esterase Negative (Negative) 01/25/20 21:46 Urine RBC 0-2 HPF (0-2) 01/25/20 21:46 Urine WBC 0-2 HPF (0-5) 01/25/20 21:46 Ur Epithelial Cells Negative HPF (Negative) 01/25/20 21:46 Urine Crystals Negative HPF (Negative) 01/25/20 21:46 Urine Bacteria Negative HPF (Negative) 01/25/20 21:46 Urine Casts Negative LPF (Negative) 01/25/20 21:46 Urine Mucus Negative (Negative) 01/25/20 21:46 Urine Other Negative (Negative) 01/25/20 21:46 Ur Culture Indicated? No 01/25/20 21:46 Urine Glucose 500 mg/dL (Negative) H 01/25/20 21:46
[2020-01-26] MEDS: Pantoprazole 40 MG VIAL IVP (12:02)
[2020-01-26] MEDS: Insulin Aspart 300 UNITS/3 ML PEN SC (12:04)
[2020-01-26] MEDS: Normal Saline Flush 10 ML SYR IVP ×4 (12:06→19:10)
--- NOTE | 2020-01-26 12:20 | W.CARDCONSUL ---
Date of service: 01/26/20 Time of Service: 12:21 Assessment and Plan Assessment and plan (1) NSTEMI (non-ST elevated myocardial infarction): Status: Acute Assessment and plan: Patient has enzyme evidence of a non-ST elevation myocardial infarction. He has known longstanding coronary artery disease which is significant. At this point I would consider it appropriate to decline transfer to [facility], given his overall condition and dementia, as well as his prior expressed wishes Medical therapy should be continued. I would avoid beta-blockers given his past history of pauses precipitated by their use. He has refused permanent pacemaker implantation as well His volume status appears compensated. As noted, he does have mild to moderate left ventricular dysfunction, prior EF 45%. 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 The fall was not witnessed. His heard a thump and found him lying on the floor between the bedroom and the mckoy. He initially was quite slow to respond but then became alert. He was brought by ambulance to the emergency room where his initial electrocardiogram showed an interventricular conduction delay as well as diffuse ST abnormalities consistent with ischemia. Initial troponin was negative but his symptoms gradually increased to 2.74 today. Follow-up electrocardiogram has shown sinus rhythm with first-degree AV block, nonspecific ST-T abnormalities improved compared to admission Patient's history is obtained from his and his medical record He has known coronary artery disease dating back approximately 2006. At that time he was treated by percutaneous intervention but subsequently in 2016 underwent coronary artery bypass grafting. He had a RAMIREZ to the LAD and saphenous vein graft to the OM1 and ramus. Postoperatively he had paroxysmal atrial fibrillation for which he was briefly treated with amiodarone. He has been followed by cardiology at [facility] until this year He has known left ventricular dysfunction. His last echocardiogram according to their records showed an ejection fraction of 45% in 2017. He has known conduction system disease, with significant pauses noted when treated with beta-blockers. He tolerated pindolol for a while, but this was recently declined by his insurance coverage and he was briefly on nadolol, though this has since been discontinued. The question of permanent pacemaker has been raised with the patient and his in the past and the patient has refused His reports that lately he has been mostly sleeping. His appetite is quite poor and he has lost about 5 pounds. When he tries to walk outside with the dog he will get very short of breath. This has been present for the last several weeks. He recently was seen in primary care and referred for palliative care consult. Arrangements are ongoing for the patient to be able to return home. His has declined consideration of a jail and also has declined acute transfer to [facility] Consults Consult date: 01/26/20 Requesting physician: Dorothea Mayer Review of Systems Constitutional Constitutional: Reports daytime sleepiness, Reports fatigue, Reports frequent falls, Reports malaise, Reports poor appetite, Reports weakness and Reports weight loss ENT Ears, Nose, Mouth, and Throat: Reports disequilibrium Cardiovascular Cardiovascular: Denies chest pain, Denies chest pain at rest, Reports dyspnea and Reports dyspnea on exertion Respiratory Respiratory: Reports dyspnea and Reports dyspnea on exertion Neurologic Neurologic: Reports confusion, Reports frequent falls, Reports memory loss, Reports disequilibrium and Reports weakness Psychiatric Psychiatric: Reports change in appetite, Reports confusion and Reports memory loss Endocrine Endocrine: Reports fatigue COUNTS INCLUDE 234 BEDS AT THE [facility] Medical History Dementia (Chronic) Diabetes mellitus (Chronic 10/20/12) He is advised not to worry about sugars, as tight monitoring will unlikely provide him any longevity benefit. 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 Paternal Grandfather No problems noted. Maternal Grandmother No problems noted. Paternal Grandmother No problems noted. Son Diabetes Hyperlipidemia Son No problems noted. Daughter No problems noted. Sister No problems noted. Social History Smoking/Tobacco Use Status: Former Tobacco Use Second Hand Exposure: Yes Alcohol Intake: former Drug use: Never Substance use type: does not use Household members: spouse Housing: house Do you need help understanding health information?: Always Pets and animals: Yes Pets and animals: cat(s) and dog(s) Sexually active: No Do you think of yourself as: straight/heterosexual Current gender identity: male What is your relationship status?: How often do you talk on the phone with friends or family?: twice per week How often do you get together with friends or relatives?: once per week How often do you attend jew or congregation services?: decline to answer Do you belong to any clubs or organized social groups?: decline to answer Panel score (0-1 are the most socially isolated patients): 2 What type of physical activity do you participate in: none and decline to answer Duration: decline to answer Frequency: decline to answer Lindy/Holiness: No preference Special lindy needs: No Seatbelt use: always Helmet use: No Drive intox or ride w/intox driver starting gate: No Do you feel safe at home: Yes Do you feel safe in your relationship?: Yes Exam Narrative Exam Narrative: Thin elderly man, reclining in bed in no acute distress Eyes Pupils: PERRL EOM: EOM intact bilaterally Resp Auscultation: clear to auscultation bilaterally Cardio Rate: regular rate Rhythm: regular rhythm Heart Sounds: S1 normal and S2 normal Other: No murmur gallop appreciated Skin Other: Pale, warm and dry Neuro Other: Confused, unreliable historian Results Last Vital Signs Temp 36.4 C L 01/26/20 09:36 Pulse 86 01/26/20 12:00 Resp 23 01/26/20 12:00 BP 121/70 01/26/20 12:00 Pulse Ox 94 L 01/26/20 12:00 Labs Result diagrams: 01/26/20 06:15 01/26/20 06:15 Labs: Laboratory Results - last 24 hr 01/25/20 01/25/20 01/25/20 21:30 21:30 21:30 WBC 7.75 RBC 4.21 L Hgb 13.7 Hct 41.7 MCV 99.0 H MCH 32.5 MCHC 32.9 RDW 12.8 Plt Count 199 MPV 10.6 Immature Gran % 0.3 Neutrophils % 77.0 Lymphocytes % 13.5 Monocytes % 8.3 Eosinophils % 0.3 Basophils % 0.6 Nucleated RBC % 0 Absolute Neutrophils 5.97 Absolute Lymphocytes 1.05 L Absolute Monocytes 0.64 Absolute Eosinophils 0.02 Absolute Basophils 0.05 APTT D-Dimer VBG Lactate 2.9 H* Sodium 137 Potassium 4.4 Chloride 99 Carbon Dioxide 27.6 Anion Gap 10.4 BUN 22 H Creatinine 1.68 H Estimated GFR/1.73 m2 39.31 Glucose 405 H Calcium 9.2 Magnesium 2.0 Total Bilirubin 0.8 AST 14 L ALT 15 L Alkaline Phosphatase 88 Troponin I < 0.05 NT-Pro-B Natriuret Pep Total Protein 7.5 Albumin 3.2 L TSH Free T4 Urine Color Urine Clarity Urine pH Ur Specific Wilson Urine Protein Urine Ketones Urine Blood Urine Nitrite Urine Bilirubin Urine Urobilinogen Ur Leukocyte Esterase Urine RBC Urine WBC Ur Epithelial Cells Urine Crystals Urine Bacteria Urine Casts Urine Mucus Urine Other Ur Culture Indicated? Urine Glucose 01/25/20 01/26/20 01/26/20 21:46 01:20 06:15 WBC RBC Hgb Hct MCV MCH MCHC RDW Plt Count MPV Immature Gran % Neutrophils % Lymphocytes % Monocytes % Eosinophils % Basophils % Nucleated RBC % Absolute Neutrophils Absolute Lymphocytes Absolute Monocytes Absolute Eosinophils Absolute Basophils APTT D-Dimer VBG Lactate Sodium 137 Potassium 4.4 Chloride 100 Carbon Dioxide 26.3 Anion Gap 10.7 BUN 24 H Creatinine 1.46 H Estimated GFR/1.73 m2 46.23 Glucose 318 H Calcium 9.6 Magnesium Total Bilirubin AST ALT Alkaline Phosphatase Troponin I 0.24 H* 1.42 H* NT-Pro-B Natriuret Pep 9089 H Total Protein Albumin TSH 0.46 Free T4 1.17 Urine Color Yellow Urine Clarity Clear Urine pH 7.0 Ur Specific [place] 1.020 Urine Protein 100 H Urine Ketones 15 H Urine Blood Negative Urine Nitrite Negative Urine Bilirubin Negative Urine Urobilinogen 0.2 Ur Leukocyte Esterase Negative Urine RBC 0-2 Urine WBC 0-2 Ur Epithelial Cells Negative Urine Crystals Negative Urine Bacteria Negative Urine Casts Negative Urine Mucus Negative Urine Other Negative Ur Culture Indicated? No Urine Glucose 500 H 01/26/20 01/26/20 01/26/20 06:15 06:15 08:30 WBC 8.37 RBC 4.15 L Hgb 13.7 Hct 40.1 MCV 96.6 H MCH 33.0 MCHC 34.2 RDW 13.1 Plt Count 191 MPV 10.8 Immature Gran % 0.2 Neutrophils % 71.0 Lymphocytes % 17.3 Monocytes % 11.0 Eosinophils % 0.1 Basophils % 0.4 Nucleated RBC % 0 Absolute Neutrophils 5.94 Absolute Lymphocytes 1.45 Absolute Monocytes 0.92 H Absolute Eosinophils 0.01 Absolute Basophils 0.03 APTT D-Dimer 6347 H VBG Lactate Sodium Potassium Chloride Carbon Dioxide Anion Gap BUN Creatinine Estimated GFR/1.73 m2 Glucose Calcium Magnesium Total Bilirubin AST ALT Alkaline Phosphatase Troponin I NT-Pro-B Natriuret Pep Cancelled Total Protein Albumin TSH Free T4 Urine Color Urine Clarity Urine pH Ur Specific [place] Urine Protein Urine Ketones Urine Blood Urine Nitrite Urine Bilirubin Urine Urobilinogen Ur Leukocyte Esterase Urine RBC Urine WBC Ur Epithelial Cells Urine Crystals Urine Bacteria Urine Casts Urine Mucus Urine Other Ur Culture Indicated? Urine Glucose 01/26/20 01/26/20 01/26/20 08:30 10:15 10:15 WBC RBC Hgb Hct MCV MCH MCHC RDW Plt Count MPV Immature Gran % Neutrophils % Lymphocytes % Monocytes % Eosinophils % Basophils % Nucleated RBC % Absolute Neutrophils Absolute Lymphocytes Absolute Monocytes Absolute Eosinophils Absolute Basophils APTT 26.3 D-Dimer VBG Lactate 1.6 H Sodium Potassium Chloride Carbon Dioxide Anion Gap BUN Creatinine Estimated GFR/1.73 m2 Glucose Calcium Magnesium Total Bilirubin AST ALT Alkaline Phosphatase Troponin I 2.74 H* NT-Pro-B Natriuret Pep Total Protein Albumin TSH Free T4 Urine Color Urine Clarity Urine pH Ur Specific [place] Urine Protein Urine Ketones Urine Blood Urine Nitrite Urine Bilirubin Urine Urobilinogen Ur Leukocyte Esterase Urine RBC Urine WBC Ur Epithelial Cells Urine Crystals Urine Bacteria Urine Casts Urine Mucus Urine Other Ur Culture Indicated? Urine Glucose
--- NOTE | 2020-01-26 13:30 | RT.EKG_ITS ---
APPROVED REPORT Exam: Resting ECG Patient Location: I HR:78 bpm ECG Measurements Heart Rate 78 AXIS NV 265 P 69 QRSd 102 QRS 47 QT 368 T -85 QTc 420 Conclusion Sinus rhythm...normal P axis, V-rate 60- 99 Prolonged NV interval...NV >220, V-rate 50- 90 Low voltage, extremity leads...all extremity leads <0.5mV Nonspecific repol abnormality, diffuse leads...ST dep, T flat/neg, ant/lat/inf
--- NOTE | 2020-01-26 13:33 | PCNE_ITS ---
Date of service: 01/26/20 Time of Service: 09:30 History of Present Illness History of Present Illness Chief Complaint: GA Narrative: Aubrey Francois is a very pleasant 84 year old man with a past medical history significant for GA with stent placement and CABG in 2016, ischemic cardiomyopathy, HTN, diabetes with complications, alzheimer's disease, PAF, Hx of nodular lymphoma, hyperlipidemia and sick sinus syndrome (declined pacemaker in the past). He is admitted to the hospital with elevated toponin. Palliative care was consulted to discuss CODE status and goals of care. He was seen in the ICU on a heparin drip. He provided a history that was not consistent with the information provided by his . He wanted to defer to his to make decisions on CODE status and whether or not to transfer to [facility]. He states that he is going home. His , Smita came in and joined the visit. She is clear that he never wanted another surgical procedure. They declined a pacemaker in the recent past. He has been saying at home that he does not want to live anymore. She explained how he has a poor quality of life. He does not get out of bed some days. When he does get out of bed he goes into the living room and falls asleep on the couch. She helps him bathe and dress every day. She and her son, Harmeet, who are both listed as kristy care agents for him, believe that he would not want resuscitation or intubation. We filled out a COLST form indicating that he is a DNR/DNI. Smita preferred that Aubrey stay at [facility] for medical management of his GA. We discussed that it is possible that he will not do well and that he could de teriorate. In the event that he deteriorates, she would want him to be kept comfortable. If possible, she would like to take him home. She is interested in palliative continuing to follow him at the hospital and after discharge home. After his visit, he was moved to the med/surg floor. Dr. Hanley called me to notify me that his condition appeared to be deteriorating and that his troponin continued to climb. I reached his by telephone to let her know. She wanted to discuss the change with her children, she wanted him to be kept comfortable and she said she was on her way to the hospital at that time. This information was relayed back to Dr. Hanley who was discussing this with the hospitalist, Dr. Mayer. 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 Francois is a very pleasant 84 year old man. 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 They are not interested in transfer to [facility]. Palliative will continue to follow along. If he survives this event, consider discharge home on hospice. Review of Systems Narrative: He denies CP/pressure, SOB, coughing or wheezing. Denies edema. No abdominal pain, nausea or vomiting. [facility] Medical History Dementia (Chronic) Diabetes mellitus (Chronic 10/20/12) He is advised not to worry about sugars, as tight monitoring will unlikely provide him any longevity benefit. 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 Paternal Grandfather No problems noted. Maternal Grandmother No problems noted. Paternal Grandmother No problems noted. Son Diabetes Hyperlipidemia Son No problems noted. Daughter No problems noted. Sister No problems noted. Social History Smoking/Tobacco Use Status: Former Tobacco Use Second Hand Exposure: Yes Alcohol Intake: former Drug use: Never Substance use type: does not use Household members: spouse Housing: house Do you need help understanding health information?: Always Pets and animals: Yes Pets and animals: cat(s) and dog(s) Sexually active: No Do you think of yourself as: straight/heterosexual Current gender identity: male What is your relationship status?: How often do you talk on the phone with friends or family?: twice per week How often do you get together with friends or relatives?: once per week How often do you attend amish or shinto services?: decline to answer Do you belong to any clubs or organized social groups?: decline to answer Panel score (0-1 are the most socially isolated patients): 2 What type of physical activity do you participate in: none and decline to answer Duration: decline to answer Frequency: decline to answer Lindy/Mosque: No preference Special lindy needs: No Seatbelt use: always Helmet use: No Drive intox or ride w/intox 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 Speech is clear and articulate, poor historian. HEENT: normocephalic, atruamatic, pupils equal and round, mucous membranes dry. Neck: supple. Cardiovascular: nontachycardic, pauses noted, no murmur appreciated. Respiratory: respirations appear even and unlabored, lung sounds clear bilaterally. GI: soft, nontender on palpation, nondistended, +BS. Extremities: no edema, faint pedal pulses. Results Last Vital Signs Temp 36.4 C L 01/26/20 09:36 Pulse 86 01/26/20 12:00 Resp 23 01/26/20 12:00 BP 121/70 01/26/20 12:00 Pulse Ox 94 L 01/26/20 12:00 Labs Result diagrams: 01/26/20 06:15 01/26/20 06:15 Labs: Laboratory Results - last 24 hr 01/25/20 01/25/20 01/25/20 21:30 21:30 21:30 WBC 7.75 RBC 4.21 L Hgb 13.7 Hct 41.7 MCV 99.0 H MCH 32.5 MCHC 32.9 RDW 12.8 Plt Count 199 MPV 10.6 Immature Gran % 0.3 Neutrophils % 77.0 Lymphocytes % 13.5 Monocytes % 8.3 Eosinophils % 0.3 Basophils % 0.6 Nucleated RBC % 0 Absolute Neutrophils 5.97 Absolute Lymphocytes 1.05 L Absolute Monocytes 0.64 Absolute Eosinophils 0.02 Absolute Basophils 0.05 APTT D-Dimer VBG Lactate 2.9 H* Sodium 137 Potassium 4.4 Chloride 99 Carbon Dioxide 27.6 Anion Gap 10.4 BUN 22 H Creatinine 1.68 H Estimated GFR/1.73 m2 39.31 Glucose 405 H Calcium 9.2 Magnesium 2.0 Total Bilirubin 0.8 AST 14 L ALT 15 L Alkaline Phosphatase 88 Troponin I < 0.05 NT-Pro-B Natriuret Pep Total Protein 7.5 Albumin 3.2 L TSH Free T4 Urine Color Urine Clarity Urine pH Ur Specific [place] Urine Protein Urine Ketones Urine Blood Urine Nitrite Urine Bilirubin Urine Urobilinogen Ur Leukocyte Esterase Urine RBC Urine WBC Ur Epithelial Cells Urine Crystals Urine Bacteria Urine Casts Urine Mucus Urine Other Ur Culture Indicated? Urine Glucose 01/25/20 01/26/20 01/26/20 21:46 01:20 06:15 WBC RBC Hgb Hct MCV MCH MCHC RDW Plt Count MPV Immature Gran % Neutrophils % Lymphocytes % Monocytes % Eosinophils % Basophils % Nucleated RBC % Absolute Neutrophils Absolute Lymphocytes Absolute Monocytes Absolute Eosinophils Absolute Basophils APTT D-Dimer VBG Lactate Sodium 137 Potassium 4.4 Chloride 100 Carbon Dioxide 26.3 Anion Gap 10.7 BUN 24 H Creatinine 1.46 H Estimated GFR/1.73 m2 46.23 Glucose 318 H Calcium 9.6 Magnesium Total Bilirubin AST ALT Alkaline Phosphatase Troponin I 0.24 H* 1.42 H* NT-Pro-B Natriuret Pep 9089 H Total Protein Albumin TSH 0.46 Free T4 1.17 Urine Color Yellow Urine Clarity Clear Urine pH 7.0 Ur Specific [place] 1.020 Urine Protein 100 H Urine Ketones 15 H Urine Blood Negative Urine Nitrite Negative Urine Bilirubin Negative Urine Urobilinogen 0.2 Ur Leukocyte Esterase Negative Urine RBC 0-2 Urine WBC 0-2 Ur Epithelial Cells Negative Urine Crystals Negative Urine Bacteria Negative Urine Casts Negative Urine Mucus Negative Urine Other Negative Ur Culture Indicated? No Urine Glucose 500 H 01/26/20 01/26/20 01/26/20 06:15 06:15 08:30 WBC 8.37 RBC 4.15 L Hgb 13.7 Hct 40.1 MCV 96.6 H MCH 33.0 MCHC 34.2 RDW 13.1 Plt Count 191 MPV 10.8 Immature Gran % 0.2 Neutrophils % 71.0 Lymphocytes % 17.3 Monocytes % 11.0 Eosinophils % 0.1 Basophils % 0.4 Nucleated RBC % 0 Absolute Neutrophils 5.94 Absolute Lymphocytes 1.45 Absolute Monocytes 0.92 H Absolute Eosinophils 0.01 Absolute Basophils 0.03 APTT D-Dimer 6347 H VBG Lactate Sodium Potassium Chloride Carbon Dioxide Anion Gap BUN Creatinine Estimated GFR/1.73 m2 Glucose Calcium Magnesium Total Bilirubin AST ALT Alkaline Phosphatase Troponin I NT-Pro-B Natriuret Pep Cancelled Total Protein Albumin TSH Free T4 Urine Color Urine Clarity Urine pH Ur Specific [place] Urine Protein Urine Ketones Urine Blood Urine Nitrite Urine Bilirubin Urine Urobilinogen Ur Leukocyte Esterase Urine RBC Urine WBC Ur Epithelial Cells Urine Crystals Urine Bacteria Urine Casts Urine Mucus Urine Other Ur Culture Indicated? Urine Glucose 01/26/20 01/26/20 01/26/20 08:30 10:15 10:15 WBC RBC Hgb Hct MCV MCH MCHC RDW Plt Count MPV Immature Gran % Neutrophils % Lymphocytes % Monocytes % Eosinophils % Basophils % Nucleated RBC % Absolute Neutrophils Absolute Lymphocytes Absolute Monocytes Absolute Eosinophils Absolute Basophils APTT 26.3 D-Dimer VBG Lactate 1.6 H Sodium Potassium Chloride Carbon Dioxide Anion Gap BUN Creatinine Estimated GFR/1.73 m2 Glucose Calcium Magnesium Total Bilirubin AST ALT Alkaline Phosphatase Troponin I 2.74 H* NT-Pro-B Natriuret Pep Total Protein Albumin TSH Free T4 Urine Color Urine Clarity Urine pH Ur Specific [place] Urine Protein Urine Ketones Urine Blood Urine Nitrite Urine Bilirubin Urine Urobilinogen Ur Leukocyte Esterase Urine RBC Urine WBC Ur Epithelial Cells Urine Crystals Urine Bacteria Urine Casts Urine Mucus Urine Other Ur Culture Indicated? Urine Glucose
[2020-01-26 13:41] LABS: COVID-19 RT-PCR UVMMC Result Negative (Negative)
[2020-01-26] MEDS: Ondansetron 4 MG/2 ML VIAL IVP (13:54)
[2020-01-26] MEDS: nitroGLYcerin 0.4 MG TAB SL (15:00)
[2020-01-26 15:07] LABS: Troponin I 2.97 ng/mL (<0.06)
[2020-01-26 15:20] LABS: PTT Activated 58.1 sec (21.0-31.4)
[2020-01-26] MEDS: fentaNYL 100 MCG/2 ML VIAL 25 MCG IVP ×2 (15:41→19:09)
[2020-01-26] MEDS: MORPHine 2 MG/ML SYR 1 MG IVP (15:41)
[2020-01-26] MEDS: Docusate Sodium 100 MG CAP PO (19:47)
[2020-01-26] MEDS: Gabapentin 100 MG CAP PO (23:00)
[2020-01-27 06:57] VITALS: BP 148/70; PULSE 77; RESP 18; TEMP 36.4; O2SAT 97
[2020-01-27] MEDS: Isosorbide Mononitrate 10 MG TAB PO ×2 (07:57→21:10)
[2020-01-27] MEDS: Docusate Sodium 100 MG CAP PO ×2 (07:57→21:10)
--- NOTE | 2020-01-27 13:35 | CMPROGNOTE_ITS ---
- If Service Date Differs Date of service: 01/27/20 Time of Service: 13:35 Care Management Progress Note S/O: No change in plan. Aubrey remains on comfort measures. A review of the chart reveals no further telemetry monitoring or labs will be ordered. Aubrey reported to the provider he was not feeling well this morning but felt better this afternoon. He was able to visit with his grandchildren today and that helped to cheer him up. CM will continue to follow. A: Aubrey is a 84 year old male admitted to [facility] on 01/26/2020 for NSTEMI and syncope. P: No change in plan. Per report, Aubrey likely had an ischemic event. He is remaining at [facility] for medical management, but he will return home with his once medically cleared. He may be Hospice eligible, per Palliative, which will depend on his course at [facility]. He will either go home with HH RN, PT, OT, SECTION 8 PROPERTY MANAGER or with Hospice support. CM will continue to follow and support discharge planning considerations.
--- NOTE | 2020-01-27 16:22 | W.PM.PROGNOT ---
Date of Service Date of service: 01/27/20 Time of Service: 16:24 Assessment and Plan Assessment and plan (1) NSTEMI (non-ST elevated myocardial infarction): Status: Acute Assessment and plan: The patient/family refused transfer to [facility] with decision to go on comfort measures by yesterday afternoon. Continue current management. No further telemetry monitoring/labs. (2) Sick sinus syndrome due to SA node dysfunction: Status: Chronic Assessment and plan: As above (3) Elevated d-dimer: Status: Acute Assessment and plan: Patient/family no longer interested in workup. (4) Unwitnessed fall: Status: Acute Assessment and plan: Possible syncope given above. No further workup. Focus on comfort measures. (5) Hypotension: Status: Resolved Assessment and plan: Only monitor VS prn (6) Uncontrolled diabetes mellitus: Status: Acute Assessment and plan: hold insulin and focus on comfort measures only. Diet liberelized. (7) Urinary retention: Status: Acute Assessment and plan: maravilla written (8) Dementia: Status: Chronic Assessment and plan: Behaviors controlled. Per palliative care, home meds are held (9) Discharge planning issues: Status: Acute Assessment and plan: DNR/DNI, on comfort measures. Possible home with hospice on Wednesday if still alive at that time. Subjective Subjective Interval history since last seen: Mr Francois states he is feeling much better this afternoon, but he did not feel well this morning. Per nursing, he stated that he thought he was going to today. He is pain free, comfortable, not short of breath or dizzy, and is not having nausea. He has been snacking and resting. [facility]. His is not sure that she will be able to take care of him at home, but he does repeat that this is where he wants to go. Exam Narrative Exam Narrative: General: Pleasant elderly male, A&Ox2, comfortable and looks much better than yesterday HEENT: EOMI, MMM Heart: not auscultated Lungs: nonlabored breathing Abdomen: covered with blankets Extremities: covered with blankets. Objective Objective Clinical Data: Vital Signs Temperature 36.4 C L 01/27/20 06:57 Temperature Source Tympanic 01/27/20 06:57 Pulse 77 08/29/20 06:57 Pulse Rhythm Regular 01/26/20 00:36 Pulse 86 01/26/20 12:00 Respiratory Rate 18 01/27/20 06:57 Respiratory Effort Non-Labored 01/27/20 07:40 Respiratory Depth Normal 01/27/20 07:40 Respiratory Pattern Normal 01/27/20 07:40 Blood Pressure 148/70 H 01/27/20 06:57 Blood Pressure Mean 82 01/26/20 12:00 Blood Pressure Position Supine 01/26/20 09:36 Pulse Oximetry 97 01/27/20 06:57 Oxygen Delivery Method Nasal Cannula 01/27/20 06:57 Oxygen Flow Rate 2 01/27/20 06:57 Pain Level 0 01/27/20 06:57 Comment 01/26/20 15:40 Intake & Output 01/26/20 01/27/20 01/27/20 23:59 11:59 23:59 Intake Total 412.333 / 412.333 10 / 10 Output Total 250 / 700 200 / 200 Balance 162.333 / -287.667 -190 / -190 Intake: IV 72.333 / 72.333 10 / 10 Oral 340 / 340 Output: Urine 250 / 700 200 / 200 Other: Urine Color Yellow Yellow Yellow Urine Appearance Clear Clear Urine Odor Normal Normal Comment void x 1 in bsc. Stool Size Moderate Moderate Large Stool Characteristics Soft Soft Soft Formed Formed Formed Brown Voiding Methods Bedside Commode Bedside Commode Bedside Commode Laboratory Results WBC 8.37 10^3/uL (4.4-10.8) 01/26/20 06:15 RBC 4.15 10^6/uL (4.36-5.78) L 01/26/20 06:15 Hgb 13.7 g/dL (13.5-17.5) 01/26/20 06:15 Hct 40.1 % (40.0-50.0) 01/26/20 06:15 MCV 96.6 fL (80-95) H 01/26/20 06:15 MCH 33.0 pg (27.0-33.0) 01/26/20 06:15 MCHC 34.2 % (32.0-36.0) 01/26/20 06:15 RDW 13.1 % (11.8-14.1) 01/26/20 06:15 Plt Count 191 10^3/uL (130-400) 01/26/20 06:15 MPV 10.8 fL (8.0-11.0) 01/26/20 06:15 Immature Gran % 0.2 01/26/20 06:15 Neutrophils % 71.0 01/26/20 06:15 Lymphocytes % 17.3 01/26/20 06:15 Monocytes % 11.0 01/26/20 06:15 Eosinophils % 0.1 01/26/20 06:15 Basophils % 0.4 01/26/20 06:15 Nucleated RBC % 0 % 01/26/20 06:15 Absolute Neutrophils 5.94 10^3/uL (1.2-6.7) 01/26/20 06:15 Absolute Lymphocytes 1.45 10^3/uL (1.2-3.4) 01/26/20 06:15 Absolute Monocytes 0.92 10^3/uL (0.1-0.8) H 01/26/20 06:15 Absolute Eosinophils 0.01 10^3/uL (0.0-0.7) 01/26/20 06:15 Absolute Basophils 0.03 10^3/uL (0.0-0.2) 01/26/20 06:15 APTT 58.1 sec (21.0-31.4) H D 01/26/20 14:30 D-Dimer 6347 ng/mlFEU (<500) H 01/26/20 08:30 VBG Lactate 1.6 mmol/L (0.6-1.4) H 01/26/20 10:15 Sodium 137 mmol/L (136-145) 01/26/20 06:15 Potassium 4.4 mmol/L (3.5-5.1) 01/26/20 06:15 Chloride 100 mmol/L (98-107) 01/26/20 06:15 Carbon Dioxide 26.3 mmol/L (21.0-32.0) 01/26/20 06:15 Anion Gap 10.7 mmol/L (3-11) 01/26/20 06:15 BUN 24 mg/dL (7-18) H 01/26/20 06:15 Creatinine 1.46 mg/dL (0.70-1.30) H 01/26/20 06:15 Estimated GFR/1.73 m2 46.23 (mL/min/1.73m2) 01/26/20 06:15 Glucose 318 mg/dL (74-106) H 01/26/20 06:15 Calcium 9.6 mg/dL (8.5-10.1) 01/26/20 06:15 Magnesium 2.0 mg/dL (1.8-2.4) 01/25/20 21:30 Total Bilirubin 0.8 mg/dL (0.2-1.0) 01/25/20 21:30 AST 14 U/L (15-37) L 01/25/20 21:30 ALT 15 U/L (16-63) L 01/25/20 21:30 Alkaline Phosphatase 88 U/L (46-116) 01/25/20 21:30 Troponin I 2.97 ng/mL (<0.06) H* 01/26/20 14:30 NT-Pro-B Natriuret Pep 9089 pg/mL (<300) H 01/26/20 06:15 NT-Pro-B Natriuret Pep Cancelled 01/26/20 06:15 Total Protein 7.5 g/dL (6.4-8.2) 01/25/20 21:30 Albumin 3.2 g/dL (3.4-5.0) L 01/25/20 21:30 TSH 0.46 uIU/mL (0.36-3.74) 01/26/20 06:15 Free T4 1.17 ng/dL (0.76-1.46) 01/26/20 06:15 Urine Color Yellow (Yellow) 01/25/20 21:46 Urine Clarity Clear (Clear) 01/25/20 21:46 Urine pH 7.0 (5-8) 01/25/20 21:46 Ur Specific [place] 1.020 (1.005-1.025) 01/25/20 21:46 Urine Protein 100 mg/dL (Negative) H 01/25/20 21:46 Urine Ketones 15 mg/dL (Negative) H 01/25/20 21:46 Urine Blood Negative (Negative) 01/25/20 21:46 Urine Nitrite Negative (Negative) 01/25/20 21:46 Urine Bilirubin Negative (Negative) 01/25/20 21:46 Urine Urobilinogen 0.2 EU/dL (Up TO 0.2) 01/25/20 21:46 Ur Leukocyte Esterase Negative (Negative) 01/25/20 21:46 Urine RBC 0-2 HPF (0-2) 01/25/20 21:46 Urine WBC 0-2 HPF (0-5) 01/25/20 21:46 Ur Epithelial Cells Negative HPF (Negative) 01/25/20 21:46 Urine Crystals Negative HPF (Negative) 01/25/20 21:46 Urine Bacteria Negative HPF (Negative) 01/25/20 21:46 Urine Casts Negative LPF (Negative) 01/25/20 21:46 Urine Mucus Negative (Negative) 01/25/20 21:46 Urine Other Negative (Negative) 01/25/20 21:46 Ur Culture Indicated? No 01/25/20 21:46 Urine Glucose 500 mg/dL (Negative) H 01/25/20 21:46 COVID-19 PCR Negative (Negative) 01/25/20 23:27 Nasopharyn COVID-19 PCR Not Applicable 01/25/20 23:27 Ref Test Perform Site [facility] 01/25/20 23:27
--- NOTE | 2020-01-27 16:50 | NUR.NOTE ---
Nursing Note: 01/27/2020 16:50 Patient is currently sleeping and his is at the bedside. Patient has had many family members in and out of his room today, this visitation seems to have made him more cheerful than he was at the start of today's shift. This morning the patient reported to the nurse that he was not happy with his quality of life and hoped to soon. Patient appeared to be smiling, chatting, and enjoying the company of his family throughout the day. Patient has denied chest pain or shortness of breath today, nurse will continue to monitor.
[2020-01-27] MEDS: Gabapentin 100 MG CAP PO (21:10)
[2020-01-27 22:35] VITALS: BP 115/73; PULSE 73; RESP 17; TEMP 36.4; O2SAT 93
[2020-01-28] MEDS: Isosorbide Mononitrate 10 MG TAB PO ×2 (07:33→21:17)
[2020-01-28] MEDS: Docusate Sodium 100 MG CAP PO ×2 (07:33→21:17)
--- NOTE | 2020-01-28 10:08 | PGE_ITS ---
Date of Service Date of service: 01/28/20 Time of Service: 10:08 Assessment and Plan Assessment and plan (1) Comfort measures only status: Start date: 01/28/20 Start time: 10:17 Status: Acute Assessment and plan: Patient has elected to stop all medical interventions and concentrate on comfort. He is comfort measures with a family meeting tomorrow to discuss hospice. At this time he appears comfortable. Awake, eating and joking (2) NSTEMI (non-ST elevated myocardial infarction): Start date: 01/28/20 Start time: 10:30 Status: Acute Assessment and plan: Continue current management. No further telemetry monitoring/labs. As above (3) Dementia: Start time: Status: Chronic Assessment and plan: Behaviors controlled. Per palliative care, home meds are held (4) Discharge planning issues: Start date: 01/28/20 Start time: : Status: Acute Assessment and plan: DNR/DNI, on comfort measures. Possible home with hospice on Wednesday if still alive at that time. above case discussed with Dr. Mayer who is in agreement. Subjective Subjective Patient reports: no new complaints Interval history since last seen: Appears to be in no acute distress. When asking about pain, he states yeah right there and points to family member, jokingly. Sitting up in bed eating an turkmen muffin from [employer] smiling. Family at bedside. Exam Narrative Exam Narrative: General: Pleasant elderly male, A&Ox2, comfortable and looks good HEENT: EOMI, MMM Heart: not auscultated Lungs: nonlabored breathing Abdomen: covered with blankets Extremities: covered with blankets. Objective Objective Clinical Data: Vital Signs Temperature 36.4 C L 01/27/20 22:35 Temperature Source Tympanic 01/27/20 22:35 Pulse 73 01/27/20 22:35 Pulse Rhythm Regular 01/26/20 00:36 Pulse 86 01/26/20 12:00 Respiratory Rate 17 01/27/20 22:35 Respiratory Effort Non-Labored 01/28/20 07:30 Respiratory Depth Normal 01/28/20 07:30 Respiratory Pattern Normal 01/28/20 07:30 Blood Pressure 115/73 01/27/20 22:35 Blood Pressure Mean 82 01/26/20 12:00 Blood Pressure Position Supine 01/26/20 09:36 Pulse Oximetry 93 L 01/27/20 22:35 Oxygen Delivery Method Room Air 01/27/20 22:35 Oxygen Flow Rate 0 01/27/20 22:35 Pain Level 0 01/27/20 06:57 Comment 01/27/20 22:35 Intake & Output 01/27/20 01/27/20 01/28/20 11:59 23:59 11:59 Intake Total Output Total 200 / 600 400 / 600 400 / 400 Balance -190 / -530 -340 / -530 -390 / -390 Intake: IV Oral 50 / 50 Output: Urine 200 / 600 400 / 600 400 / 400 Other: Urine Color Yellow Yellow Yellow Urine Appearance Clear Cloudy Clear Urine Odor Normal Normal Normal Comment void x 1 in bsc. Stool Size Moderate Large Stool Characteristics Soft Soft Formed Formed Brown Voiding Methods Bedside Commode Bedside Commode Bedside Commode Laboratory Results WBC 8.37 10^3/uL (4.4-10.8) 01/26/20 06:15 RBC 4.15 10^6/uL (4.36-5.78) L 01/26/20 06:15 Hgb 13.7 g/dL (13.5-17.5) 01/26/20 06:15 Hct 40.1 % (40.0-50.0) 01/26/20 06:15 MCV 96.6 fL (80-95) H 01/26/20 06:15 MCH 33.0 pg (27.0-33.0) 01/26/20 06:15 MCHC 34.2 % (32.0-36.0) 01/26/20 06:15 RDW 13.1 % (11.8-14.1) 01/26/20 06:15 Plt Count 191 10^3/uL (130-400) 01/26/20 06:15 MPV 10.8 fL (8.0-11.0) 01/26/20 06:15 Immature Gran % 0.2 01/26/20 06:15 Neutrophils % 71.0 01/26/20 06:15 Lymphocytes % 17.3 01/26/20 06:15 Monocytes % 11.0 01/26/20 06:15 Eosinophils % 0.1 01/26/20 06:15 Basophils % 0.4 01/26/20 06:15 Nucleated RBC % 0 % 01/26/20 06:15 Absolute Neutrophils 5.94 10^3/uL (1.2-6.7) 01/26/20 06:15 Absolute Lymphocytes 1.45 10^3/uL (1.2-3.4) 01/26/20 06:15 Absolute Monocytes 0.92 10^3/uL (0.1-0.8) H 01/26/20 06:15 Absolute Eosinophils 0.01 10^3/uL (0.0-0.7) 01/26/20 06:15 Absolute Basophils 0.03 10^3/uL (0.0-0.2) 01/26/20 06:15 APTT 58.1 sec (21.0-31.4) H D 01/26/20 14:30 D-Dimer 6347 ng/mlFEU (<500) H 01/26/20 08:30 VBG Lactate 1.6 mmol/L (0.6-1.4) H 01/26/20 10:15 Sodium 137 mmol/L (136-145) 01/26/20 06:15 Potassium 4.4 mmol/L (3.5-5.1) 01/26/20 06:15 Chloride 100 mmol/L (98-107) 01/26/20 06:15 Carbon Dioxide 26.3 mmol/L (21.0-32.0) 01/26/20 06:15 Anion Gap 10.7 mmol/L (3-11) 01/26/20 06:15 BUN 24 mg/dL (7-18) H 01/26/20 06:15 Creatinine 1.46 mg/dL (0.70-1.30) H 01/26/20 06:15 Estimated GFR/1.73 m2 46.23 (mL/min/1.73m2) 01/26/20 06:15 Glucose 318 mg/dL (74-106) H 01/26/20 06:15 Calcium 9.6 mg/dL (8.5-10.1) 01/26/20 06:15 Magnesium 2.0 mg/dL (1.8-2.4) 01/25/20 21:30 Total Bilirubin 0.8 mg/dL (0.2-1.0) 01/25/20 21:30 AST 14 U/L (15-37) L 01/25/20 21:30 ALT 15 U/L (16-63) L 01/25/20 21:30 Alkaline Phosphatase 88 U/L (46-116) 01/25/20 21:30 Troponin I 2.97 ng/mL (<0.06) H* 01/26/20 14:30 NT-Pro-B Natriuret Pep 9089 pg/mL (<300) H 01/26/20 06:15 NT-Pro-B Natriuret Pep Cancelled 01/26/20 06:15 Total Protein 7.5 g/dL (6.4-8.2) 01/25/20 21:30 Albumin 3.2 g/dL (3.4-5.0) L 01/25/20 21:30 TSH 0.46 uIU/mL (0.36-3.74) 01/26/20 06:15 Free T4 1.17 ng/dL (0.76-1.46) 01/26/20 06:15 Urine Color Yellow (Yellow) 01/25/20 21:46 Urine Clarity Clear (Clear) 01/25/20 21:46 Urine pH 7.0 (5-8) 01/25/20 21:46 Ur Specific [place] 1.020 (1.005-1.025) 01/25/20 21:46 Urine Protein 100 mg/dL (Negative) H 01/25/20 21:46 Urine Ketones 15 mg/dL (Negative) H 01/25/20 21:46 Urine Blood Negative (Negative) 01/25/20 21:46 Urine Nitrite Negative (Negative) 01/25/20 21:46 Urine Bilirubin Negative (Negative) 01/25/20 21:46 Urine Urobilinogen 0.2 EU/dL (Up TO 0.2) 01/25/20 21:46 Ur Leukocyte Esterase Negative (Negative) 01/25/20 21:46 Urine RBC 0-2 HPF (0-2) 01/25/20 21:46 Urine WBC 0-2 HPF (0-5) 01/25/20 21:46 Ur Epithelial Cells Negative HPF (Negative) 01/25/20 21:46 Urine Crystals Negative HPF (Negative) 01/25/20 21:46 Urine Bacteria Negative HPF (Negative) 01/25/20 21:46 Urine Casts Negative LPF (Negative) 01/25/20 21:46 Urine Mucus Negative (Negative) 01/25/20 21:46 Urine Other Negative (Negative) 01/25/20 21:46 Ur Culture Indicated? No 01/25/20 21:46 Urine Glucose 500 mg/dL (Negative) H 01/25/20 21:46 COVID-19 PCR Negative (Negative) 01/25/20 23:27 Nasopharyn COVID-19 PCR Not Applicable 01/25/20 23:27 Ref Test Perform Site [facility] 01/25/20 23:27
--- NOTE | 2020-01-28 10:55 | PDOC.CMPRO ---
- If Service Date Differs Date of service: 01/28/20 Time of Service: 10:55 Care Management Progress Note S/O: Aubrey remains on comfort measures. A: Aubrey is a 84 year old male admitted to [facility] on 01/26/2020 for NSTEMI and syncope. P: No change in plan. Per report, Aubrey likely had an ischemic event. He is remaining at [facility] for medical management, but he will return home with his once medically cleared. He may be Hospice eligible, per Palliative, which will depend on his course at [facility]. He will either go home with RN, PT, OT, HOSPITAL CODER or with Hospice support. CM will continue to follow and support discharge planning considerations.
[2020-01-28] MEDS: Pantoprazole 40 MG VIAL IVP (12:13)
[2020-01-28] MEDS: Normal Saline Flush 10 ML SYR IVP (12:14)
[2020-01-28 15:18] VITALS: BP 133/76; PULSE 75; RESP 18; TEMP 36.2; O2SAT 97
[2020-01-28] MEDS: Gabapentin 100 MG CAP PO (21:17)
[2020-01-29] MEDS: Isosorbide Mononitrate 10 MG TAB PO ×2 (07:47→20:08)
[2020-01-29] MEDS: Docusate Sodium 100 MG CAP PO ×2 (07:47→20:08)
--- NOTE | 2020-01-29 11:54 | CHAPLAIN ---
Aubrey was sitting up in the recliner when I visited. He said things aren't going as well as I'd like. He believes family members are either calling or showing up to visit today, but so far I haven't seen anything of them, he said. There were some cans of Mountain Dew in his room, when I asked if that's what he likes to drink, he said yes, but he used to like whiskey and coke. When I asked if I could get him anything, he said, out of here. Aubrey was pleasant and joked around with me during our conversation. It was difficult to tell if he know for sure if family members were coming to visit, and exactly why he's here.
[2020-01-29] MEDS: Pantoprazole 40 MG VIAL IVP (12:40)
[2020-01-29] MEDS: Normal Saline Flush 10 ML SYR IVP (12:40)
--- NOTE | 2020-01-29 14:29 | DIABASSESS_ITS ---
Date of service: 01/29/20 Time of Service: 14:29 Diabetes Note NOTE: 84 year old male admitted with advanced alzheimers dx, currently on [employer], pallative care. BMI wnl. Following Regular diet with adequate intake to meet nutrient and fluid needs. Received DM consult but not appropriate in view of cognition. Will continue to monitor po intake and provide with meal preferences. Time Spent in Nutritional Counseling and Treatment: 5 min spent face to face
--- NOTE | 2020-01-29 16:46 | PGE_ITS ---
Date of Service Date of service: 01/29/20 Time of Service: 16:46 Assessment and Plan Assessment and plan (1) Comfort measures only status: Status: Acute Assessment and plan: At this time he appears comfortable. Awake, eating and medically stable (2) NSTEMI (non-ST elevated myocardial infarction): Status: Acute Assessment and plan: Continue current management. No further telemetry monitoring/labs. As above (3) Dementia: Status: Chronic Assessment and plan: Behaviors controlled. Per palliative care, home meds are held (4) Discharge planning issues: Status: Acute Assessment and plan: DNR/DNI, on comfort measures. home with hospice tomorrow. above case discussed with Dr. Mayer who is in agreement. Subjective Subjective Patient reports: no new complaints, feels better, tolerating liquids well and tolerating a regular diet Interval history since last seen: patient sitting in chair, pleasantly confused, unable to provide any history. denies any c/o pain or shortness of breath at the present. Exam Const General: cooperative, healthy appearing, comfortable and no acute distress Nutritional Appearance: overweight Orientation: alert, awake and oriented x3 Limitations: other limitations (severe advanced dementia, no behavioral disturbances) [facility] Head: normal to inspection, normocephalic and atraumatic Mouth: oral mucosae normal Resp Effort & Inspection: normal respiratory effort Auscultation: clear to auscultation bilaterally Cardio Rate: regular rate Rhythm: regular rhythm GI Inspection: normal to inspection Palpation: soft Auscultation: normal bowel sounds Skin General skin exam: no rashes or lesions noted Neuro General: patient alert, patient awake and patient confused (baseline) Extrem General: normal to inspection, full ROM and no pedal edema Psych Appearance: grossly normal Speech and Movement: speech and movement normal Mood: congruent mood Affect: normal affect Attitude: cooperative Insight: poor Judgment: poor Objective Objective Clinical Data: Vital Signs Temperature 36.2 C L 01/28/20 15:18 Temperature Source Tympanic 01/28/20 15:18 Pulse 75 01/28/20 15:18 Pulse Rhythm Regular 01/26/20 00:36 Pulse 86 01/26/20 12:00 Respiratory Rate 18 01/28/20 15:18 Respiratory Effort 01/29/20 10:03 Respiratory Depth Normal 01/29/20 10:03 Respiratory Pattern Normal 01/29/20 10:03 Blood Pressure 133/76 01/28/20 15:18 Blood Pressure Mean 82 01/26/20 12:00 Blood Pressure Position Supine 01/26/20 09:36 Pulse Oximetry 97 01/28/20 15:18 Oxygen Delivery Method Room Air 01/28/20 15:18 Oxygen Flow Rate 0 01/28/20 15:18 Pain Level 0 01/28/20 15:18 Comment 01/27/20 22:35 Intake & Output 01/28/20 01/29/20 01/29/20 23:59 11:59 23:59 Intake Total 480 / 480 Output Total 475 / 875 Balance -475 / -865 480 / 480 Intake: Oral 480 / 480 Output: Urine 475 / 875 Other: Urine Color Straw Straw Urine Appearance Clear Clear Urine Odor Normal Normal Stool Size Moderate Stool Characteristics Soft Brown Voiding Methods Bedside Commode Bedside Commode Laboratory Results WBC 8.37 10^3/uL (4.4-10.8) 01/26/20 06:15 RBC 4.15 10^6/uL (4.36-5.78) L 01/26/20 06:15 Hgb 13.7 g/dL (13.5-17.5) 01/26/20 06:15 Hct 40.1 % (40.0-50.0) 01/26/20 06:15 MCV 96.6 fL (80-95) H 01/26/20 06:15 MCH 33.0 pg (27.0-33.0) 01/26/20 06:15 MCHC 34.2 % (32.0-36.0) 01/26/20 06:15 RDW 13.1 % (11.8-14.1) 01/26/20 06:15 Plt Count 191 10^3/uL (130-400) 01/26/20 06:15 MPV 10.8 fL (8.0-11.0) 01/26/20 06:15 Immature Gran % 0.2 01/26/20 06:15 Neutrophils % 71.0 01/26/20 06:15 Lymphocytes % 17.3 01/26/20 06:15 Monocytes % 11.0 01/26/20 06:15 Eosinophils % 0.1 01/26/20 06:15 Basophils % 0.4 01/26/20 06:15 Nucleated RBC % 0 % 01/26/20 06:15 Absolute Neutrophils 5.94 10^3/uL (1.2-6.7) 01/26/20 06:15 Absolute Lymphocytes 1.45 10^3/uL (1.2-3.4) 01/26/20 06:15 Absolute Monocytes 0.92 10^3/uL (0.1-0.8) H 01/26/20 06:15 Absolute Eosinophils 0.01 10^3/uL (0.0-0.7) 01/26/20 06:15 Absolute Basophils 0.03 10^3/uL (0.0-0.2) 01/26/20 06:15 APTT 58.1 sec (21.0-31.4) H D 01/26/20 14:30 D-Dimer 6347 ng/mlFEU (<500) H 01/26/20 08:30 VBG Lactate 1.6 mmol/L (0.6-1.4) H 01/26/20 10:15 Sodium 137 mmol/L (136-145) 01/26/20 06:15 Potassium 4.4 mmol/L (3.5-5.1) 01/26/20 06:15 Chloride 100 mmol/L (98-107) 01/26/20 06:15 Carbon Dioxide 26.3 mmol/L (21.0-32.0) 01/26/20 06:15 Anion Gap 10.7 mmol/L (3-11) 01/26/20 06:15 BUN 24 mg/dL (7-18) H 01/26/20 06:15 Creatinine 1.46 mg/dL (0.70-1.30) H 01/26/20 06:15 Estimated GFR/1.73 m2 46.23 (mL/min/1.73m2) 01/26/20 06:15 Glucose 318 mg/dL (74-106) H 01/26/20 06:15 Calcium 9.6 mg/dL (8.5-10.1) 01/26/20 06:15 Magnesium 2.0 mg/dL (1.8-2.4) 01/25/20 21:30 Total Bilirubin 0.8 mg/dL (0.2-1.0) 01/25/20 21:30 AST 14 U/L (15-37) L 01/25/20 21:30 ALT 15 U/L (16-63) L 01/25/20 21:30 Alkaline Phosphatase 88 U/L (46-116) 01/25/20 21:30 Troponin I 2.97 ng/mL (<0.06) H* 01/26/20 14:30 NT-Pro-B Natriuret Pep 9089 pg/mL (<300) H 01/26/20 06:15 NT-Pro-B Natriuret Pep Cancelled 01/26/20 06:15 Total Protein 7.5 g/dL (6.4-8.2) 01/25/20 21:30 Albumin 3.2 g/dL (3.4-5.0) L 01/25/20 21:30 TSH 0.46 uIU/mL (0.36-3.74) 01/26/20 06:15 Free T4 1.17 ng/dL (0.76-1.46) 01/26/20 06:15 Urine Color Yellow (Yellow) 01/25/20 21:46 Urine Clarity Clear (Clear) 01/25/20 21:46 Urine pH 7.0 (5-8) 01/25/20 21:46 Ur Specific [place] 1.020 (1.005-1.025) 01/25/20 21:46 Urine Protein 100 mg/dL (Negative) H 01/25/20 21:46 Urine Ketones 15 mg/dL (Negative) H 01/25/20 21:46 Urine Blood Negative (Negative) 01/25/20 21:46 Urine Nitrite Negative (Negative) 01/25/20 21:46 Urine Bilirubin Negative (Negative) 01/25/20 21:46 Urine Urobilinogen 0.2 EU/dL (Up TO 0.2) 01/25/20 21:46 Ur Leukocyte Esterase Negative (Negative) 01/25/20 21:46 Urine RBC 0-2 HPF (0-2) 01/25/20 21:46 Urine WBC 0-2 HPF (0-5) 01/25/20 21:46 Ur Epithelial Cells Negative HPF (Negative) 01/25/20 21:46 Urine Crystals Negative HPF (Negative) 01/25/20 21:46 Urine Bacteria Negative HPF (Negative) 01/25/20 21:46 Urine Casts Negative LPF (Negative) 01/25/20 21:46 Urine Mucus Negative (Negative) 01/25/20 21:46 Urine Other Negative (Negative) 01/25/20 21:46 Ur Culture Indicated? No 01/25/20 21:46 Urine Glucose 500 mg/dL (Negative) H 01/25/20 21:46 COVID-19 PCR Negative (Negative) 01/25/20 23:27 Nasopharyn COVID-19 PCR Not Applicable 01/25/20 23:27 Ref Test Perform Site [facility] lab 01/25/20 23:27
--- NOTE | 2020-01-29 16:46 | PDOC.CMPRO ---
- If Service Date Differs Date of service: 01/29/20 Time of Service: 16:46 Care Management Progress Note S/O: Aubrey was resting when CM attempted to meet with him. CM called Smita on her home and cell phones, and left messages for both regarding a Hospice consult this afternoon. CM did not receive confirmation from Smita, which delayed the consult. Noris from Hospice was able to meet with Smita and family, who decided to bring Aubrey home on Hospice tomorrow after DME delivery from [place]. CM will continue to follow. A: Aubrey is a 84 year old male admitted to [facility] on 01/26/2020 for NSTEMI and syncope. P: Per report, Aubrey likely had an ischemic event. He is remaining at [facility] for medical management, but he will return home with his once medically cleared. His family has chosen to bring him home with Hospice support. His equipment needs will be delivered by [facility] tomorrow morning, and an afternoon discharge will be planned. CM will continue to follow and support discharge planning considerations.
[2020-01-29] MEDS: Gabapentin 100 MG CAP PO (21:42)
[2020-01-30 07:46] VITALS: BP 147/78; PULSE 70; RESP 19; TEMP 36.8; O2SAT 94
[2020-01-30] MEDS: Normal Saline Flush 10 ML SYR IVP (08:03)
[2020-01-30] MEDS: Docusate Sodium 100 MG CAP PO (08:03)
[2020-01-30] MEDS: Isosorbide Mononitrate 10 MG TAB PO (08:03)
--- NOTE | 2020-01-30 10:25 | W.PM.DS.N ---
Date of service: 01/30/20 Time of Service: 10:25 DS: Diagnosis Discharge Diagnosis (1) Comfort measures only status: Status: Acute (2) NSTEMI (non-ST elevated myocardial infarction): Status: Acute (3) Dementia: Status: Chronic Discharge Plan Disposition Patient Disposition: HOME W/HOME HEALTH SERVICE Condition: Fair Discharge Details Chief Complaint: Vascular Clinical Impression: Hypotension, Hyperglycemia, Unwitnessed fall Reason For Visit: NSTEMI, SYNCOPE Admit Date/Time: 01/26/20 11:25 Admit Provider: Anshu Wood Attending Provider: Anshu Wood Primary Care Provider: Jamar Diaz ED Provider: Hakeem Shafer [facility] Course Hospital Course: This is a 84-year-old gentleman with a complex past medical history including SD with stent placement CABG ischemic cardiomyopathy sick sinus syndrome refused pacemaker severe advanced dementia who presented to the emergency department found to have elevated troponin. He was admitted to the ICU on a heparin drip for non-STEMI. A palliative care consult was sought and made decision for DNR/DNI based on his previous wishes and declined transfer [place] [facility] [place]. He stayed here for medical management. Medically he remained stable and returned to his baseline. Palliative care continue to follow him while in the hospital and plan is to discharge to home on hospice services. He has been eating and drinking bowels and bladder functioning. He has been hemodynamically stable he denies any complaints of pain shortness of breath. He has had no oxygen requirements. Case management has been following DME has been obtained and he is being discharged home on hospice discharge plan discussed with Dr Mayer who is in agreement Home Meds and New Rx's Prescriptions: Continued gabapentin 100 mg capsule 100 mg PO HS Qty: 90 RF: 3 acetaminophen 500 MG tablet 500 mg PO 1-2 Tabs Q6Hrs PRN Qty: 1 RF: 0 aspirin 81 MG tablet,chewable 81 mg PO DAILY RF: 0 Discontinued donepezil 10 mg tablet 10 mg PO DAILY Qty: 90 RF: 3 glipizide 5 mg tablet 5 - 10 mg PO BID Qty: 270 RF: 3 memantine 5 mg tablet 5 mg PO BID Qty: 180 RF: 3 multivitamin [Daily Multi-Vitamin] 1 EACH tablet 1 ea PO DAILY RF: 0 pravastatin [Pravachol] 40 mg tablet 40 mg PO DAILY Qty: 90 RF: 4 furosemide 40 mg tablet 60 mg PO DAILY Qty: 135 RF: 3 losartan 25 mg tablet 25 mg PO DAILY RF: 0 No Action (DME) blood sugar diagnostic Strip 1 ea Miscellaneous TID Qty: 100 RF: 3 isosorbide mononitrate 10 mg tablet 10 mg PO BID Qty: 180 RF: 3 (DME) lancets [Acti-Korey Lancets] 28 gauge misc See Dose Instructions .ROUTE .MEDSUPPLY Qty: 50 RF: 3 Discharge Instructions Instructions: Heart Attack (DC) Additional Instructions: Home medications per hospice services. Referrals: Jamar Diaz [Primary Care Provider] - Activity:: Activity as Tolerated Equipment/Supplies:: No Equipment Needed Diet:: As Tolerated Discharge Orders Discharge Orders: Discharge Order (Routine); Ordered 01/30/20 Ordered By: Samantha Ibarra DS: Summary Status at Discharge Functional status at discharge: uses cane/walker Overall status at discharge: patient is progressing back to baseline Mental Status: other Speech and Movement: speech and movement normal Mood: congruent mood and other Affect: normal affect Exam Const General: cooperative, healthy appearing, comfortable and no acute distress Nutritional Appearance: overweight Orientation: alert, awake and oriented x3 Limitations: other limitations (severe advanced dementia, no behavioral disturbances) HENOH Head: normal to inspection, normocephalic and atraumatic Mouth: oral mucosae normal Resp Effort & Inspection: normal respiratory effort Auscultation: clear to auscultation bilaterally Cardio Rate: regular rate Rhythm: regular rhythm GI Inspection: normal to inspection Palpation: soft Auscultation: normal bowel sounds Skin General skin exam: no rashes or lesions noted Neuro General: patient alert, patient awake and patient confused (baseline) Extrem General: normal to inspection, full ROM and no pedal edema Psych Appearance: grossly normal Mental Status: other Speech and Movement: speech and movement normal Mood: congruent mood and other Affect: normal affect Attitude: cooperative Insight: poor Judgment: poor DS: Data Vitals/I&O Vitals and I&O: Vital Signs Temperature 36.8 C 01/30/20 07:46 Temperature Source Tympanic 01/30/20 07:46 Pulse 70 01/30/20 07:46 Pulse Rhythm Irregular 01/29/20 17:00 Pulse 86 01/26/20 12:00 Respiratory Rate 19 01/30/20 07:46 Respiratory Effort Non-Labored 01/30/20 02:30 Respiratory Depth Normal 01/30/20 02:30 Respiratory Pattern Normal 01/30/20 02:30 Blood Pressure 147/78 H 01/30/20 07:46 Blood Pressure Mean 82 01/26/20 12:00 Blood Pressure Position Supine 01/26/20 09:36 Pulse Oximetry 94 L 01/30/20 07:46 Oxygen Delivery Method Room Air 01/30/20 07:46 Oxygen Flow Rate 0 01/30/20 07:46 Pain Level 0 01/30/20 07:46 Comment 01/27/20 22:35 Intake & Output 01/29/20 01/29/20 01/30/20 11:59 23:59 11:59 Intake Total 480 / 600 120 / 600 Balance 480 / 600 120 / 600 Intake: Oral 480 / 600 120 / 600 Other: Urine Color Straw Yellow Yellow Urine Appearance Clear Clear Clear Urine Odor Normal Normal None Comment Unable to assess amount, contaminated with stool Stool Size Smear Stool Characteristics Soft Voiding Methods Bedside Commode Bedside Commode Bedside Commode [facility] Medical History (Updated 01/28/20 @ 10:12 by Nena Chaudhry NP) Atherosclerosis of [place] coronary artery (Inactive) 1979-SD;3 vessel disease, stents placed 2005 and 2007 neg. stress echo 08/2009 Dementia (Chronic) Diabetes mellitus (Chronic 10/20/12) He is advised not to worry about sugars, as tight monitoring will unlikely provide him any longevity benefit. 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 currently no evidence of recurrence of lymphoma Palliative care patient (Acute) Paroxysmal atrial fibrillation (Chronic 12/23/15) Peripheral neuropathy (Inactive 06/13/14) Renal insufficiency (Inactive 05/06/16) Sciatica (Inactive) right sided; MRI 04/09-multiple level disc disease Sick sinus syndrome due to SA node dysfunction (Chronic) Skin abnormality (Inactive 12/08/14) left face Surgical History (Updated 01/28/20 @ 09:32 by Nena Chaudhry NP) CARDIAC CATH (~2007) RIGHT AND LEFT History of intravascular stent placement (Inactive) History of right and left heart catheterization (Inactive) Status post coronary artery bypass with three autogenous grafts (Inactive 07/17/15) EF 30% Stent placement 2007; 1 2005; 4+ `Z[place]ATCH` [place] Family History Mother Diabetes Myocardial infarction Father Myocardial infarction Sister Diabetes Heart disease Maternal Grandfather No problems noted. Paternal Grandfather No problems noted. Maternal Grandmother No problems noted. Paternal Grandmother No problems noted. Son Diabetes Hyperlipidemia Son No problems noted. Daughter No problems noted. Sister No problems noted. Social History Smoking/Tobacco Use Status: Former Tobacco Use Second Hand Exposure: Yes Alcohol Intake: former Drug use: Never Substance use type: does not use Household members: spouse Housing: house Do you need help understanding health information?: Always Pets and animals: Yes Pets and animals: cat(s) and dog(s) Sexually active: No Do you think of yourself as: straight/heterosexual Current gender identity: male What is your relationship status?: How often do you talk on the phone with friends or family?: twice per week How often do you get together with friends or relatives?: once per week How often do you attend yazidi or mu-ism services?: decline to answer Do you belong to any clubs or organized social groups?: decline to answer Panel score (0-1 are the most socially isolated patients): 2 What type of physical activity do you participate in: none and decline to answer Duration: decline to answer Frequency: decline to answer Lindy/Uatsdin: No preference Special lindy needs: No Seatbelt use: always Helmet use: No Drive intox or ride w/intox contract driver: No Do you feel safe at home: Yes Do you feel safe in your relationship?: Yes
--- NOTE | 2020-01-30 11:15 | CHAPLAIN ---
Aubrey was sitting in his recliner when I visited. He said he hopes he is going home today. According to Care Management, Aubrey will be going home with hospice care today. Aubrey said he'd live in the basement if he could go home. Reflecting on his life, he said that Smita has been a wonderful , but now that he is in this 80s, he said it is hard not to be able to do what he wants to do. I have to learn to just sit and twiddle my thumbs, he said. He talked about the frustrations of getting old and suggested I not do it. At points, he said he has considered that he would like to give up, just fall asleep and not wake up, but that wouldn't be fair to Smita. Aubrey said his children will be around to help Smita care for him. He wasn't happy about that, but realized Smita needed the help. I suggested that his kids my be grateful to be able to provide some care for him, after he had cared for them for many years.
--- NOTE | 2020-01-30 16:15 | CMDISCH_ITS ---
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 Visits: 1 - Answers: Total Score: 13 Risk of Readmission: High Risk Care Management Discharge Reason for Hospitalization: Syncope Discharge Plan: Aubrey will return home with Hospice support today, into the care of his , Smita, and many family members who are willing to help with his end of life care. [employer] delivered his equipment today prior to him leaving. He was transported home via [employer], coordinated by CM. He was happy to be going home. Patient/Family Education Needs: Review discharge instructions with pt and family, discuss expectations surrounding Hospice care. Services Needed at Discharge: Home Health Care Services ([facility]), Transportation ([facility])
== END 2020-01-30 13:04 | disposition home health service (06) | DRG 282 ==
LOC: ER 23:47 → MS 01-26 08:30 → ICU 01-26 11:20 → MS 01-26 12:53 → ICU 01-26 12:56 → MS 01-26 13:00
PROVIDERS: Internal Medicine; Admitting Provider Family Medicine; Emergency Provider Emergency Medicine; PCP Family Medicine; Visit Provider Family Medicine
DX: I21.4 Non-ST elevation (NSTEMI) myocardial infarction (principal); Z51.5 Encounter for palliative care; I95.9 Hypotension, unspecified; F03.90 Unspecified dementia, unspecified severity, without behavioral disturbance, psychotic disturbance, mood disturbance, and anxiety; I25.2 Old myocardial infarction; I25.5 Ischemic cardiomyopathy; I49.5 Sick sinus syndrome; Z66 Do not resuscitate; Z91.81 History of falling; E11.65 Type 2 diabetes mellitus with hyperglycemia; I25.10 Atherosclerotic heart disease of native coronary artery without angina pectoris; E78.5 Hyperlipidemia, unspecified; I10 Essential (primary) hypertension; Z86.711 Personal history of pulmonary embolism; I48.0 Paroxysmal atrial fibrillation; Z85.72 Personal history of non-Hodgkin lymphomas; Z79.84 Long term (current) use of oral hypoglycemic drugs; Z79.82 Long term (current) use of aspirin; R33.9 Retention of urine, unspecified
CPT/HCPCS: 36415; 51702; 80048; 80053; 93005; 96360; 96361; 99220; 99222; 99231; 99233; 99239; 99253; 99255; 99285; 99291; U0003; 70450; 71046; 72125; 81003; 81015; 83605; 83735; 83880; 84439; 84443; 84484; 85025; 85379; 85730; 93010; G0378; J2270; J2405; J3010; J3490

== ENCOUNTER → 2020-01-26 11:01 | Outpatient (BNVA) | payer OTHER, SELFPAY | PROVIDERS: PCP Family Medicine; Referring Provider Family Medicine; Visit Provider Internal Medicine Cardiovascular Disease | DX: R69 Illness, unspecified (principal) ==

== ENCOUNTER 2020-02-07 16:23 | Outpatient (REF) | payer OTHER, SELFPAY ==
[2020-02-07 13:11] LABS: Bilirubin Negative (Negative); Blood Negative (Negative); Clarity Clear (Clear); Glucose 500 mg/dL (Negative); Ketones 15 mg/dL (Negative); Leukocyte Esterase Negative (Negative); Nitrite Negative (Negative); Specific Gravity 1.025 (1.005-1.025); pH 5.5 (5-8)
[2020-02-07 13:26] LABS: Bacteria Negative HPF (Negative); Epithelial Cells Rare HPF (Negative); RBC 0-2 HPF (0-2); WBC Negative HPF (0-5)
[2020-02-07 13:27] LABS: C & S Indicated? No; Casts Negative LPF (Negative); Crystals Moderate Amorphous HPF (Negative); Mucus Trace (Negative)
== END 2020-02-07 16:43 ==
LOC: LBN 16:23
PROVIDERS: PCP Family Medicine; Visit Provider Family Medicine
DX: R82.998 Other abnormal findings in urine (principal); R33.8 Other retention of urine
CPT/HCPCS: 81003; 81015